=== PATIENT | male | born 1960 | race Caucasian/White ===

== ENCOUNTER → 2017-06-21 10:57 | Outpatient (CLI) | payer OTHER, SELFPAY ==
--- NOTE | 2017-06-21 11:02 | RAD_ITS ---
STUDY: X-RAY CHEST REASON FOR EXAM: Male, 56 years old. COPD. TECHNIQUE: Single frontal view of the chest. COMPARISON: CT scan 03/08/2017, chest x-ray June 15, 2016.. FINDINGS: The lungs are hyperexpanded. There are coarsened interstitial markings suggestive of mild chronic fibrosis. Stable appearance of irregular soft tissue densities in the right apex most consistent with scarring as seen on prior studies. No gross acute infiltrates. No gross effusions. Normal size heart. Normal mediastinum and herbert. Normal visualized pulmonary arteries. Normal visualized aortic arch and descending thoracic aorta. Normal visualized thoracic spine. There is degenerative osteoarthritis of the bilateral shoulders. There is no demonstrated abnormality of the visualized soft tissue structures of the upper abdomen. RAD/Chest PA and Lateral IMPRESSION: Stable COPD with probable mild fibrosis, and probable stable scarring in the right apex. Electronically Signed: Abiel Severino MD at 23:51 EST , Service support ,
== END ==
PROVIDERS: Family Provider Family Medicine; PCP Family Medicine; Visit Provider Internal Medicine Pulmonary Disease
DX: J44.9 Chronic obstructive pulmonary disease, unspecified (principal)
CPT/HCPCS: 71046

== ENCOUNTER → 2017-07-21 08:23 | Outpatient (CLI) | payer OTHER, SELFPAY ==
[2017-07-21 08:31] VITALS: BP 121/72; PULSE 100; RESP 18; TEMP 37.3; BMI 23.9
[2017-07-21] MEDS: Cosyntropin 0.25 MG Vial IM (08:39)
== END ==
PROVIDERS: Family Provider Family Medicine; PCP Family Medicine; Visit Provider Nurse Practitioner
DX: Z79.52 Long term (current) use of systemic steroids (principal)
CPT/HCPCS: 36415; 82533; 96372; J0834

== ENCOUNTER → 2017-12-20 09:38 | Outpatient (CLI) | payer OTHER, SELFPAY ==
[2017-12-20 12:02] LABS: Hematocrit 39.5 % (40-54); Hemoglobin 13.7 g/dl (13.0-16.5); Mean Corp Hgb Conc 34.7 g/gl (32-36); Mean Corpuscular Hgb 34.8 pg (27.0-32.0); Mean Corpuscular Volume 100.3 fL (80-94); Mean Platelet Vol. 8.8 fl (6.2-12.0); Platelet Count 488 K/mm3 (150-450); RBC Distribution Width SD 47.9 fl (35.1-43.9); Red Blood Count 3.94 M/mm3 (4.6-6.2); White Blood Count 10.3 K/mm3 (4.4-11.0)
[2017-12-20 12:03] LABS: Scan Indicated on CBC? Y/N NO
[2017-12-20 12:21] LABS: Vitamin B12 1650 pg/mL (211-911); Vitamin D,25 Hydroxy 34.8 ng/mL (29.95-100.01)
[2017-12-20 12:27] LABS: ALB/GLOB Ratio 0.9 RATIO (0.9-2.4); AST(SGOT) 25 U/L (15-37); Alanine Aminotransfer ALT/SGPT 23 U/L (16-61); Albumin, Serum 3.5 g/dL (3.2-5.0); Alkaline Phosphatase 76 U/L (45-117); Anion Gap 11 (5-15); BUN 5 mg/dL (7-18); BUN/Creat Ratio 7.4 RATIO (10-20); Calcium,Total 8.6 mg/dL (8.5-10.1); Chloride 94 mmol/L (98-107); Cholesterol 112 mg/dL (200); Creatinine, Serum 0.68 mg/dL (0.70-1.30); EST Glomerular Filtration Rate 128 mL/min (>60); Est Glom Filt Rate - Afr Amer 155 mL/min (>60); Glucose 101 mg/dL (74-106); High Density Lipoprotein 90 mg/dL; PSA,Total - Annual Screen 0.83 ng/mL (0.00-4.00); Potassium 4.2 mmol/L (3.5-5.1); Protein, Total 7.5 g/dL (6.4-8.2); Sodium Level 130 mmol/L (136-145); Triglycerides 20 mg/dL; Very Low Density Lipoprotein 4 mg/dL (5-40)
== END ==
PROVIDERS: Family Provider Family Medicine; PCP Family Medicine; Visit Provider Family Medicine
DX: I10 Essential (primary) hypertension (principal); K21.9 Gastro-esophageal reflux disease without esophagitis; E55.9 Vitamin D deficiency, unspecified; E53.8 Deficiency of other specified B group vitamins; Z12.5 Encounter for screening for malignant neoplasm of prostate
CPT/HCPCS: 36415; 80053; 80061; 82306; 82607; 84153; 85027; G0103

== ENCOUNTER → 2018-06-07 10:02 | Outpatient (CLI) | payer OTHER, SELFPAY ==
[2017-07-21 08:31] VITALS: BMI 23.9
--- NOTE | 2018-06-07 10:06 | RAD_ITS ---
STUDY: X-RAY - LUMBAR SPINE REASON FOR EXAM: Male, 57 years old. Back pain. TECHNIQUE: 5 view(s) of the lumbar spine were obtained. COMPARISON: None FINDINGS: Normal lumbar lordosis. There is no substantial scoliosis. There is a normal alignment of the vertebrae. Normal vertebral bodies and endplates. Moderate degenerative disc disease at L3-L4 and L4-L5. Otherwise normal disc space heights. There is no demonstrated fracture. The soft tissue structures are unremarkable. RAD/L/S Spine Min 4 Views IMPRESSION: Degenerative changes at L3-L4 and L4-L5. No acute abnormality. Electronically Signed: Abiel Severino MD at 23:10 EST , Service support ,
[2018-06-07 12:46] LABS: AST(SGOT) 21 U/L (15-37); Alanine Aminotransfer ALT/SGPT 21 U/L (16-61); Albumin, Serum 3.8 g/dL (3.2-5.0); Alkaline Phosphatase 105 U/L (45-117); Anion Gap 9 (5-15); BUN 10 mg/dL (7-18); BUN/Creat Ratio 12.6 RATIO (10-20); Chloride 98 mmol/L (98-107); Creatinine, Serum 0.79 mg/dL (0.70-1.30); EST Glomerular Filtration Rate 106 mL/min (>60); Est Glom Filt Rate - Afr Amer 128 mL/min (>60); Glucose 93 mg/dL (74-106); Potassium 4.3 mmol/L (3.5-5.1); Protein, Total 7.8 g/dL (6.4-8.2); Sodium Level 132 mmol/L (136-145)
[2018-06-07 12:54] LABS: Vitamin D,25 Hydroxy 37.1 ng/mL (29.95-100.01)
== END ==
LOC: MTLAB 10:05
PROVIDERS: Family Provider Family Medicine; PCP Family Medicine; Referring Provider Family Medicine; Visit Provider Family Medicine
DX: I10 Essential (primary) hypertension (principal); E55.9 Vitamin D deficiency, unspecified; M51.36 Other intervertebral disc degeneration, lumbar region
CPT/HCPCS: 36415; 72110; 80053; 82306

== ENCOUNTER → 2018-12-29 14:29 | Outpatient (CLI) | payer OTHER, SELFPAY ==
[2017-07-21 08:31] VITALS: BMI 23.9
[2018-12-29 15:49] LABS: Hematocrit 38.2 % (40-54); Hemoglobin 13.9 g/dL (13.0-16.5); Mean Corp Hgb Conc 36.4 g/dL (32-36); Mean Corpuscular Hgb 36.6 pg (27.0-32.0); Mean Corpuscular Volume 100.5 fL (80-94); Mean Platelet Vol. 8.9 fl (6.2-12.0); Platelet Count 465 K/mm3 (150-450); RBC Distribution Width CV 12.7 % (11.6-14.6); White Blood Count 7.8 K/mm3 (4.4-11.0)
[2018-12-29 16:16] LABS: ALB/GLOB Ratio 0.8 RATIO (0.9-2.4); AST(SGOT) 23 U/L (15-37); Alanine Aminotransfer ALT/SGPT 19 U/L (16-61); Albumin, Serum 3.4 g/dL (3.2-5.0); Alkaline Phosphatase 90 U/L (45-117); Anion Gap 7 (5-15); BUN 6 mg/dL (7-18); BUN/Creat Ratio 8.6 RATIO (10-20); Calcium,Total 8.6 mg/dL (8.5-10.1); Chloride 98 mmol/L (98-107); Cholesterol 116 mg/dL (200); EST Glomerular Filtration Rate 122 mL/min (>60); Est Glom Filt Rate - Afr Amer 148 mL/min (>60); Globulin 4.1 g/dL (2.2-4.2); Glucose 90 mg/dL (74-106); High Density Lipoprotein 88 mg/dL; PSA,Total - Annual Screen 0.67 ng/mL (0.00-4.00); Potassium 4.1 mmol/L (3.5-5.1); Protein, Total 7.5 g/dL (6.4-8.2); Sodium Level 131 mmol/L (136-145); Triglycerides 24 mg/dL; Very Low Density Lipoprotein 5 mg/dL (5-40)
[2018-12-29 16:35] LABS: Vitamin B12 1237 pg/mL (211-911); Vitamin D,25 Hydroxy 42.7 ng/mL (29.95-100.01)
== END ==
LOC: MFPLAB 14:29
PROVIDERS: Family Provider Family Medicine; PCP Family Medicine; Referring Provider Family Medicine; Visit Provider Family Medicine
DX: K21.9 Gastro-esophageal reflux disease without esophagitis (principal); I10 Essential (primary) hypertension; E53.8 Deficiency of other specified B group vitamins; E55.9 Vitamin D deficiency, unspecified; Z12.5 Encounter for screening for malignant neoplasm of prostate
CPT/HCPCS: 36415; 80053; 80061; 82306; 82607; 84153; 85027; G0103

== ENCOUNTER 2020-01-31 00:23 | Emergency (ER) | payer OTHER, SELFPAY ==
[2020-01-31 00:24] VITALS: BP 138/86; PULSE 89; RESP 16; TEMP 36.4; O2SAT 98
[2020-01-31 00:25] VITALS: BP 138/86; PULSE 97; RESP 16; TEMP 36.4; O2SAT 98; BMI 18.6
--- NOTE | 2020-01-31 00:41 | EKG12_ITS ---
Test Reason : DYSRHYTHMIA Blood Pressure : / mmHG Vent. Rate : 079 BPM Atrial Rate : 079 BPM P-R Int : 144 ms QRS Dur : 094 ms QT Int : 394 ms P-R-T Axes : 084 082 077 degrees QTc Int : 451 ms Normal sinus rhythm Normal ECG Confirmed by JESUS BERGER, ANAI ([id number]), deputy editor in chief DORIS ESTRADA ([id number]) on 01/31/2020 9:31:15 AM Referred By: OLGA LIDIA Confirmed By:ANAI LEE MD
--- NOTE | 2020-01-31 00:41 | RAD_ITS ---
STUDY: X-RAY CHEST REASON FOR EXAM: Male, 59 years old patient with weakness and weight loss over the summer from 170 to 130 pounds. Patient c/o nausea and vomiting for the last two days. Patient felt faint tonight laid down on bathroom floor. Patient has had recent ethanol intake. TECHNIQUE: Two AP portable views of the chest. COMPARISON: 06/21/2017. FINDINGS: Cardiac monitoring leads are present. There is hyperinflation of the lungs consistent with chronic obstructive lung disease (COPD). There is eventration of the hemidiaphragms. There is no demonstrated pleural abnormality. Normal size heart. Normal mediastinum and herbert. There is prominence of the pulmonary hilar arteries without peripheral pulmonary vascular congestion. Normal visualized aortic arch and descending thoracic aorta. Normal visualized thoracic spine. Normal visualized ribs, clavicles, and shoulders. There is no demonstrated abnormality of the visualized soft tissue structures of the upper abdomen. RAD/Chest 1 View (Portable) IMPRESSION: COPD without radiographic evidence of acute cardiopulmonary disease. Electronically Signed: Amanda De Souza MD at 2:28 EDT , Service support ,
--- NOTE | 2020-01-31 00:43 | ED.DCSUM_ITS ---
History of Present Illness Chief Complaint: Weakness Informant: Patient Onset: Yesterday Context: Gradual Onset Narrative: Patient presents with feeling ill for the past 2 days. He describes having a mild cough with nausea and vomiting. Tonight he had an episode where he felt dizzy and had some slight palpitations. He had a lay down on the bathroom floor. He also states he has had a 40 pound weight loss over the summer. He states he is had trouble eating and drinking secondary to his throat and he has had this worked up in the past. - Past Medical History (1) COPD (chronic obstructive pulmonary disease) Status: Chronic (2) GERD (gastroesophageal reflux disease) Status: Chronic (3) Hypertension Status: Chronic Past Medical History - Allergies and Home Meds Allergies/Adverse Reactions: Allergies No Known Allergies Allergy (Verified 07/14/17 15:46) Primary Care Physician: Jake Mcgarry MD [Primary Care Provider] - Prior records reviewed: Yes Lives: Spouse/ Significant Other Smoking Status: Current every day smoker Review of Systems General: Reports: Sweats. Denies: Fever Eyes: Denies: Visual changes - bilaterally ENT: Denies: Bilateral ear pain Cardiovascular: Reports: Palpitations Respiratory: Reports: Cough - Mild cough Gastrointestinal: Reports: Nausea, Vomiting. Denies: Abdominal pain Genitourinary: Denies: Dysuria Musculoskeletal: Reports: Myalgias Neurological: Denies: Headache Hematologic: Denies: Easy bruising, Easy bleeding Allergy: Denies: Uticaria Physical Exam Vital Signs/Narrative: Vital Signs Temp Pulse Resp BP Pulse Ox 01/31/20 00:25 97.6 F L 97 16 138/86 H 98 01/31/20 00:24 97.6 F L 89 16 138/86 H 98 Inital Vital Signs reviewed: Yes General: Well nourished, Well developed Head: Normocephalic ENT: Moist mucous membranes Neck: Supple Cardiovascular: Regular rate, Regular rhythm Respiratory: No distress, CTA bilaterally Abdomen: Soft, Nontender, Normal bowel sounds Back: Nontender Extremities: Nontender Skin: Normal color, No rash Neurological: Alert, Oriented x3 Psychological: Normal affect Diagnostic/Tx/Re-eval Impressions Chest X-Ray 01/31/20 00:41 IMPRESSION: COPD without radiographic evidence of acute cardiopulmonary disease. Electronically Signed: Amanda De Souza MD at 2:28 EDT , Service support , 01/31/20 00:41 Chest 1 View (Portable) [RAD] Stat Laboratory Results 01/31/20 01/31/20 01/31/20 00:55 00:55 00:55 WBC 14.8 H RBC 3.58 L Hgb 12.9 L Hct 36.5 L MCV 102.0 H MCH 36.0 H MCHC 35.3 RDW Std Deviation 47.5 H RDW Coeff of Nelly 12.6 Plt Count 376 MPV 8.8 Immature Gran % (Auto) 0.400 Neut % (Auto) 74.8 H Lymph % (Auto) 15.0 L [place] % (Auto) 9.2 Eos % (Auto) 0.4 Baso % (Auto) 0.2 Absolute Neuts (auto) 11.1 H Absolute Lymphs (auto) 2.23 Nucleated RBC % 0 Sodium 135 L Potassium 3.7 Chloride 105 Carbon Dioxide 22.0 Anion Gap 8 BUN 5 L Creatinine 0.59 L Estim Creat Clear Calc 106.19 Est GFR (MDRD) Af Amer 179 Est GFR (MDRD) Non-Af 148 BUN/Creatinine Ratio 8.5 L Glucose 92 Calcium 8.6 Total Bilirubin 0.40 Direct Bilirubin 0.20 AST 27 ALT 20 Alkaline Phosphatase 77 Troponin I < 0.015 Total Protein 6.9 Albumin 3.1 L Globulin 3.8 Urine Color Urine Clarity Urine pH Ur Specific [place] Urine Protein Urine Glucose (UA) Urine Ketones Urine Occult Blood Urine Nitrite Urine Bilirubin Urine Urobilinogen Ur Leukocyte Esterase Urine RBC Urine WBC Ur Squamous Epith Cells Urine Bacteria Urine Mucus Ethyl Alcohol 187.0 01/31/20 02:15 WBC RBC Hgb Hct MCV MCH MCHC RDW Std Deviation RDW Coeff of Nelly Plt Count MPV Immature Gran % (Auto) Neut % (Auto) Lymph % (Auto) [place] % (Auto) Eos % (Auto) Baso % (Auto) Absolute Neuts (auto) Absolute Lymphs (auto) Nucleated RBC % Sodium Potassium Chloride Carbon Dioxide Anion Gap BUN Creatinine Estim Creat Clear Calc Est GFR (MDRD) Af Amer Est GFR (MDRD) Non-Af BUN/Creatinine Ratio Glucose Calcium Total Bilirubin Direct Bilirubin AST ALT Alkaline Phosphatase Troponin I Total Protein Albumin Globulin Urine Color Yellow Urine Clarity Clear Urine pH 7.0 Ur Specific [place] 1.010 Urine Protein Negative Urine Glucose (UA) Normal Urine Ketones Negative Urine Occult Blood Negative Urine Nitrite Negative Urine Bilirubin Negative Urine Urobilinogen Normal Ur Leukocyte Esterase 25 H Urine RBC 0-5 SEEN Urine WBC 0 SEEN Ur Squamous Epith Cells 0 SEEN Urine Bacteria 0 SEEN Urine Mucus 0 SEEN Ethyl Alcohol - EKG Initial EKG Interpretation: Sinus Rhythm - Sinus at 79 with no acute ischemia. - Medical Decision Making Patient was given Zofran and IV fluids on arrival. Patient is a poor historian with a very convoluted story. He feels that he has been losing weight because of his throat. He states he had a fungal infection in the past and got better with nystatin and is requesting a prescription for this. He will follow-up with Dr. Banda who had done his previous scope to see if this needs to be repeated. I will also give a prescription for Zofran. Patient will be swabbed for Covid as well as respiratory viral panel prior to discharge. Patient and at bedside are comfortable with this plan. ED Disposition - Plan for ED Patient: Disposition: Home or Assisted Living Diagnosis: Vomiting, Viral syndrome Instructions: ED Viral Syndrome, ED Nausea Vomiting Adult Prescriptions: Nystatin 500,000U/5ML [Mycostatin] 4 ml PO 4X/DAY #100 ml Transmission Status: Pending to [id number] Ondansetron [Zofran Odt] 4 mg PO Q8H PRN PRN #10 tab PRN Reason: Nausea Transmission Status: Pending to [id number] Referrals: Jake Mcgarry MD [Primary Care Provider] - Nathalie Banda MD [STAFF PHYSICIAN] - As soon as possible
[2020-01-31] MEDS: 0.9% Normal Saline 1,000 ML 150 ML IV (00:54)
[2020-01-31] MEDS: Ondansetron 4 MG/2 ML Vial IV (00:57)
[2020-01-31 00:59] LABS: Absolute Lymphocyte Count 2.23 X10^3/uL (0.83-4.51); Absolute Neutrophil Count 11.1 X10^3/uL (2.0-7.7); Basophil# 0.03 X10^3/uL; Basophil% 0.2 % (0-1); Eosinophil# 0.06 X10^3/uL; Eosinophils% 0.4 % (0-5); Hematocrit 36.5 % (40-54); Hemoglobin 12.9 g/dL (13.0-16.5); Lymphocyte # 2.23 X10^3/ul (4.0); Mean Corp Hgb Conc 35.3 g/dL (32-36); Mean Platelet Vol. 8.8 fl (6.2-12.0); Monocyte# 1.37 X10^3/uL; Monocyte% 9.2 % (0-10); NRBC Flagged by Analyzer 0 % (0-5); Neutrophil # 11.08 X10^3/uL (2.7-7.7); Neutrophil % 74.8 % (47-70); Platelet Count 376 K/mm3 (150-450); RBC Distribution Width CV 12.6 % (11.6-14.6); RBC Distribution Width SD 47.5 fl (35.1-43.9); Red Blood Count 3.58 M/mm3 (4.6-6.2); White Blood Count 14.8 K/mm3 (4.4-11.0)
[2020-01-31 01:17] LABS: AST(SGOT) 27 U/L (15-37); Alanine Aminotransfer ALT/SGPT 20 U/L (16-61); Albumin, Serum 3.1 g/dL (3.2-5.0); Alkaline Phosphatase 77 U/L (45-117); Anion Gap 8 (5-15); BUN 5 mg/dL (7-18); BUN/Creat Ratio 8.5 RATIO (10-20); Calcium,Total 8.6 mg/dL (8.5-10.1); Chloride 105 mmol/L (98-107); Creatinine, Serum 0.59 mg/dL (0.70-1.30); EST Glomerular Filtration Rate 148 mL/min (>60); Est Glom Filt Rate - Afr Amer 179 mL/min (>60); Estimated Creatinine Clearance 106.19 ml/min; Globulin 3.8 g/dL (2.2-4.2); Glucose 92 mg/dL (74-106); Potassium 3.7 mmol/L (3.5-5.1); Protein, Total 6.9 g/dL (6.4-8.2); Sodium Level 135 mmol/L (136-145)
[2020-01-31 02:23] LABS: Bacteria 0 SEEN /hpf (None Seen); Color, Urine Yellow (Yellow); Glucose, Dipstick Normal (Normal); Ketone-Dipstick Negative (Negative); Leukocyte Esterase-Dipstick 25 /ul (Negative); Mucous, Urine 0 SEEN /hpf (<or=2+); Nitrite-Dipstick Negative (Negative); Occult Blood-Urine Negative /ul (Negative); Protein-Dipstick Negative (Negative); Squamous Epithelial Cells - UA 0 SEEN /hpf (0-5); Urine Bilirubin Dipstick Negative (Negative); Urine Clarity Clear (Clear); Urine Urobilinogen Normal (Normal); White Blood Cells 0 SEEN /hpf (0-5)
[2020-01-31 02:27] LABS: Red Blood Cells-Urine 0-5 SEEN /hpf (0-5)
[2020-01-31 02:51] VITALS: BP 138/92; PULSE 82; RESP 16; O2SAT 96
[2020-01-31 02:57] VITALS: BP 138/92; PULSE 82; RESP 16; O2SAT 96
== END 2020-01-31 02:59 | disposition home or self-care (01) ==
PROVIDERS: Emergency Provider Emergency Medicine; PCP Family Medicine
DX: R11.10 Vomiting, unspecified (principal); B34.9 Viral infection, unspecified; F17.200 Nicotine dependence, unspecified, uncomplicated; R63.4 Abnormal weight loss
CPT/HCPCS: 71045; 80048; 80076; 80320; 81001; 84484; 85025; 87633; 87635; 93005; 96361; 96374; 99285; J7030; A4216; G0480; J2405; U0003

== ENCOUNTER → 2020-04-22 10:26 | Outpatient (CLI) | payer OTHER, SELFPAY ==
--- NOTE | 2020-04-22 10:31 | RAD_ITS ---
STUDY: X-RAY - ABDOMEN/PELVIS REASON FOR EXAM: Male, 59 years old. DIARRHEA TECHNIQUE: AP supine and upright views of the abdomen and pelvis. COMPARISON: None. FINDINGS: Normal visualized lung bases. Multiple loops of small bowel distended with air-fluid level raising the concern of small bowel obstruction. There is no demonstrated free abdominal air. The visualized liver, spleen and kidneys are grossly normal in size and morphology. Normal soft tissue structures. Degenerative disease of the spine and bilateral hips. Scoliosis of the lumbar spine, convexity to the left. RAD/Abd Inc Decub and/or Erect IMPRESSION: Distention of small bowel loops with air-fluid level raising the concern of small bowel obstruction. If indicated, this may be further assessed with small bowel follow-through. Electronically Signed: Lani Kleni MD at 0:19 EST , Service support ,
[2020-04-22 12:24] LABS: Erythrocyte Sedimentation Rate 2 mm/hr (0-20)
[2020-04-22 12:25] LABS: Absolute Lymphocyte Count 1.79 X10^3/uL (0.83-4.51); Absolute Neutrophil Count 6.5 X10^3/uL (2.0-7.7); Basophil# 0.05 X10^3/uL; Basophil% 0.5 % (0-1); Eosinophil# 0.03 X10^3/uL; Eosinophils% 0.3 % (0-5); Hematocrit 37.2 % (40-54); Hemoglobin 13.1 g/dL (13.0-16.5); Lymphocyte # 1.79 X10^3/ul (4.0); Lymphocyte % 19.1 % (19-41); Mean Corp Hgb Conc 35.2 g/dL (32-36); Mean Corpuscular Hgb 35.5 pg (27.0-32.0); Mean Corpuscular Volume 100.8 fL (80-94); Mean Platelet Vol. 8.8 fl (6.2-12.0); Monocyte# 0.88 X10^3/uL; Monocyte% 9.4 % (0-10); NRBC Flagged by Analyzer 0 % (0-5); Neutrophil # 6.54 X10^3/uL (2.7-7.7); Neutrophil % 69.7 % (47-70); Platelet Count 448 K/mm3 (150-450); RBC Distribution Width CV 12.5 % (11.6-14.6); RBC Distribution Width SD 46.7 fl (35.1-43.9); Red Blood Count 3.69 M/mm3 (4.6-6.2); White Blood Count 9.4 K/mm3 (4.4-11.0)
[2020-04-22 12:37] LABS: ALB/GLOB Ratio 0.8 RATIO (0.9-2.4); AST(SGOT) 44 U/L (15-37); Alanine Aminotransfer ALT/SGPT 27 U/L (16-61); Albumin, Serum 3.1 g/dL (3.2-5.0); Alkaline Phosphatase 85 U/L (45-117); Anion Gap 0 (5-15); BUN 2 mg/dL (7-18); BUN/Creat Ratio 3.7 RATIO (10-20); Calcium,Total 8.5 mg/dL (8.5-10.1); Chloride 98 mmol/L (98-107); Creatinine, Serum 0.53 mg/dL (0.70-1.30); EST Glomerular Filtration Rate 166 mL/min (>60); Est Glom Filt Rate - Afr Amer 201 mL/min (>60); Globulin 3.8 g/dL (2.2-4.2); Glucose 80 mg/dL (74-106); Potassium 4.6 mmol/L (3.5-5.1); Protein, Total 6.9 g/dL (6.4-8.2); Sodium Level 128 mmol/L (136-145); Thyroid Stim Hormone (TSH) 1.42 uIU/mL (0.358-3.74)
== END ==
LOC: MTLAB 10:29
PROVIDERS: PCP Family Medicine; Referring Provider Family Medicine; Visit Provider Family Medicine
DX: R19.7 Diarrhea, unspecified (principal)
CPT/HCPCS: 36415; 74019; 80053; 84443; 85025; 85652

== ENCOUNTER 2020-04-23 08:54 | Emergency (ER) | payer OTHER, SELFPAY ==
[2020-04-23 08:55] VITALS: BP 156/90; PULSE 92; RESP 16; TEMP 36.9; O2SAT 100; BMI 19.2
--- NOTE | 2020-04-23 09:18 | CT_ITS ---
STUDY: CT ABDOMEN AND PELVIS WITH CONTRAST REASON FOR EXAM: Male, 59 years old. SBO, ABNORMAL XRAY,DIARRHEA X 12 DAYS, SPLEEN REMOVED RADIATION DOSAGE (If Supplied By Facility): CTDIvol = ( 11.14 ) mGy, DLP = ( 277.62 ) mGycm TECHNIQUE: Transaxial images were obtained from the dome of the diaphragm to the symphysis pubis without oral contrast. Oral and amp;amp; IV Gastrografin and amp;amp; 100mL Isovue-370 was administered. Sagittal and coronal images were reconstructed. Individualized dose optimization techniques were used for this CT. COMPARISON: None. FINDINGS: The visualized lung bases are unremarkable. The visualized portions of the heart are within normal limits. Normal liver. Normal gallbladder and extrahepatic biliary system. Normal spleen. Normal pancreas. Normal bilateral adrenal glands. Normal right kidney. Normal left kidney. Normal visualized stomach. Normal small intestine. There are multiple colonic diverticula consistent with diverticulosis. The appendix is visualized and appears normal. Normal abdominal aorta. Normal inferior vena cava. Normal retroperitoneum. Normal urinary bladder. Normal abdominal wall. There are diffuse degenerative changes of the visualized lumbar spine. CT/Abdomen/Pelvis WITH Contrast IMPRESSION: There are multiple colonic diverticula consistent with diverticulosis. Electronically Signed: Mario Porter, at 11:38 EST Tel , Service support ,
--- NOTE | 2020-04-23 09:29 | ED.DCSUM_ITS ---
History of Present Illness Chief Complaint: Constipation Informant: Patient Narrative: Patient is a 59-year-old male who presents to the emergency department for abnormal x-ray of the abdomen which was taken yesterday. There was concern for small bowel obstruction. He states that he has had loose stools in the morning 4-5 episodes per day over the past 12 days. States it was initially just watery. He denies any significant abdominal pain. He has been nauseous but no episodes of vomiting. He denies any fevers or chills. No chest pain or shortness of breath. 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 He denies any urinary symptoms. He did have outpatient lab work performed which they thought he was dehydrated. He denies any recent traveling. No antibiotic use. No history of C. difficile. Of note patient is a daily drinker. Drinks 4 to 5 glasses of wine per day. Denies ever going through withdrawal in the past. Past Medical History - Allergies and Home Meds Allergies/Adverse Reactions: Allergies No Known Allergies Allergy (Verified 04/23/20 08:57) Primary Care Physician: Jake Mcgarry MD [Primary Care Provider] - 1-2 Days if not improving Prior records reviewed: Yes Past Medical History: - - Hypertension, COPD Smoking Status: Current every day smoker Review of Systems All systems negative except as indicated General: Reports: Malaise. Denies: Chills, Fever, Sweats Eyes: Denies: Visual changes - bilaterally, Diplopia ENT: Denies: Rhinorrhea, Sore throat Cardiovascular: Denies: Chest pain, Palpitations Respiratory: Denies: Dyspnea, Cough, Dyspnea on exertion Gastrointestinal: Reports: Nausea, Diarrhea. Denies: Abdominal pain, Vomiting, Melena, Hematochezia Genitourinary: Denies: Dysuria, Hematuria, Frequency Musculoskeletal: Denies: Back pain, Extremity Pain Skin: Denies: Rash, Wounds Neurological: Denies: Headache, Weakness, Numbness Physical Exam Vital Signs/Narrative: Vital Signs Temp Pulse Resp BP Pulse Ox 04/23/20 08:55 98.5 F 92 16 156/90 H 100 Inital Vital Signs reviewed: Yes General: Well nourished, Well developed, No Acute Distress Head: Normocephalic, Atraumatic Eyes: Perrl, EOMI ENT: Moist mucous membranes, No rhinorrhea Neck: Supple, Nontender Cardiovascular: Regular rate, Regular rhythm, No murmurs Respiratory: No distress, CTA bilaterally, Chest nontender Abdomen: Soft, Nontender, Nondistended, - - Tympanic bowel sounds Back: Nontender, Normal Inspection Extremities: Nontender, No edema Skin: Normal color, No rash Neurological: Alert, Oriented x3, Normal Strength, Normal Sensation Psychological: Normal affect, Normal Mood Diagnostic/Tx/Re-eval - Medical Decision Making Patient presents to the ED for loose bowel movements in the day but otherwise no t having a solid bowel movement. He had an outside x-ray which showed a possible small bowel obstruction. He was referred to the ED at that time. His ago exam is benign. No abdominal tenderness. Will check basic lab work and CT scan of the abdomen/pelvis to evaluate for obstruction. Patient's lab work showed some mild dehydration with low sodium and chloride. He is given a bolus of normal saline. Otherwise no significant acute abnormality on lab work-up. His CT scan did not show any evidence of obstruction. He has diverticulosis without diverticulitis. At this point no reason to keep him in the hospital. Advised him to stay hydrated with drinking plenty of fluids. If he develops any bloody bowel movements, significant abdominal pain or develops fever/chills he needs to return to the emergency department. He otherwise is to follow-up with his PCP. He understands and is agreeable with plan. Discharged home in stable condition. All questions answered. ED Disposition - Plan for ED Patient: Disposition: Home or Assisted Living Diagnosis: Diarrhea, Dehydration Instructions: ED Dehydration (Adult), ED Diarrhea, Unknown Cause Referrals: Jake Mcgarry MD [Primary Care Provider] - 1-2 Days if not improving
[2020-04-23 09:45] LABS: Mucous, Urine 0 SEEN /hpf (<or=2+); Red Blood Cells-Urine 0 SEEN /hpf (0-5); Squamous Epithelial Cells - UA 0 SEEN /hpf (0-5)
[2020-04-23 09:51] LABS: Absolute Lymphocyte Count 1.51 X10^3/uL (0.83-4.51); Absolute Neutrophil Count 6.1 X10^3/uL (2.0-7.7); Basophil# 0.05 X10^3/uL; Basophil% 0.6 % (0-1); Eosinophil# 0.02 X10^3/uL; Eosinophils% 0.2 % (0-5); Hematocrit 40.9 % (40-54); Hemoglobin 14.3 g/dL (13.0-16.5); Lymphocyte # 1.51 X10^3/ul (4.0); Lymphocyte % 17.4 % (19-41); Mean Corpuscular Hgb 35.8 pg (27.0-32.0); Mean Corpuscular Volume 102.3 fL (80-94); Mean Platelet Vol. 8.5 fl (6.2-12.0); Monocyte# 0.89 X10^3/uL; Monocyte% 10.3 % (0-10); NRBC Flagged by Analyzer 0 % (0-5); Neutrophil # 6.13 X10^3/uL (2.7-7.7); Neutrophil % 70.6 % (47-70); Platelet Count 436 K/mm3 (150-450); RBC Distribution Width CV 12.5 % (11.6-14.6); RBC Distribution Width SD 47.7 fl (35.1-43.9); White Blood Count 8.7 K/mm3 (4.4-11.0)
[2020-04-23 09:56] LABS: Color, Urine Yellow (Yellow); Glucose, Dipstick Normal (Normal); Ketone-Dipstick Negative (Negative); Leukocyte Esterase-Dipstick 25 /ul (Negative); Nitrite-Dipstick Negative (Negative); Occult Blood-Urine Negative /ul (Negative); Protein-Dipstick Negative (Negative); Urine Bilirubin Dipstick Negative (Negative); Urine Clarity Sl. Cloudy (Clear); Urine Urobilinogen Normal (Normal)
[2020-04-23 10:05] LABS: ALB/GLOB Ratio 0.9 RATIO (0.9-2.4); AST(SGOT) 41 U/L (15-37); Alanine Aminotransfer ALT/SGPT 28 U/L (16-61); Albumin, Serum 3.4 g/dL (3.2-5.0); Alkaline Phosphatase 95 U/L (45-117); Anion Gap 5 (5-15); BUN 3 mg/dL (7-18); BUN/Creat Ratio 4.4 RATIO (10-20); Calcium,Total 8.9 mg/dL (8.5-10.1); Chloride 96 mmol/L (98-107); Creatinine, Serum 0.69 mg/dL (0.70-1.30); EST Glomerular Filtration Rate 124 mL/min (>60); Est Glom Filt Rate - Afr Amer 150 mL/min (>60); Estimated Creatinine Clearance 93.77 ml/min; Globulin 3.8 g/dL (2.2-4.2); Glucose 102 mg/dL (74-106); Potassium 4.1 mmol/L (3.5-5.1); Protein, Total 7.2 g/dL (6.4-8.2); Sodium Level 129 mmol/L (136-145)
[2020-04-23 10:07] LABS: Bacteria 1+ /hpf (None Seen); White Blood Cells 0-5 SEEN /hpf (0-5)
[2020-04-23 11:16] VITALS: BP 138/74; PULSE 64; RESP 15; O2SAT 99
[2020-04-23] MEDS: 0.9% Normal Saline 1,000 ML 999 ML IV (12:09)
== END 2020-04-23 13:53 | disposition home or self-care (01) ==
PROVIDERS: Emergency Provider Emergency Medicine; PCP Family Medicine
DX: R19.7 Diarrhea, unspecified (principal); E86.0 Dehydration; K57.30 Diverticulosis of large intestine without perforation or abscess without bleeding; I10 Essential (primary) hypertension; J44.9 Chronic obstructive pulmonary disease, unspecified; F17.200 Nicotine dependence, unspecified, uncomplicated
CPT/HCPCS: 74177; 80053; 81001; 85025; 96360; 96361; 99283; J7030; Q9967; A4216

== ENCOUNTER 2021-02-05 21:40 | Emergency (ER) | payer BC, SELFPAY ==
[2021-02-05 21:40] VITALS: BP 152/100; PULSE 94; RESP 18; TEMP 36.6; O2SAT 97
--- NOTE | 2021-02-05 22:49 | EKG12_ITS ---
Test Reason : ABD PAIN Blood Pressure : / mmHG Vent. Rate : 067 BPM Atrial Rate : 067 BPM P-R Int : 112 ms QRS Dur : 094 ms QT Int : 410 ms P-R-T Axes : 000 086 079 degrees QTc Int : 433 ms Normal sinus rhythm Normal ECG Confirmed by JESUS BERGER, ANAI ([id number]), associate editor DORIS ESTRADA ([id number]) on 02/11/2021 6:42:52 AM Referred By: NICOLE Confirmed By:ANAI LEE MD
--- NOTE | 2021-02-05 22:50 | EX.ED.DYSGE1 ---
HPI History of Present Illness Chief Complaint: Abd Pain Informant: patient and spouse/S.O. Narrative Narrative: 60-year-old male presenting with epigastric pain for 3 days. Symptoms began on Wednesday. He notes associated nausea and vomiting. He has not been able to eat or drink much. He notes that he has not been moving his bowels. He states that sometimes he can find a position of comfort but then the pain will come back. Prior to Wednesday he was not have any difficulty with eating. No fevers or diarrhea. He notes a history of hypertension. He notes a prior splenectomy when he was a child but no other abdominal surgeries [facility] Medical History (Updated 02/06/21 @ 02:[address] Lenin Salazar DO) Bone fracture COPD (chronic obstructive pulmonary disease) Environmental allergies GERD (gastroesophageal reflux disease) HTN (hypertension) Home Medications lisinopril 40 mg PO DAILY 04/23/20 [History Last Taken Unknown] famotidine [Pepcid] 20 mg PO BID #28 tab 02/06/21 [Rx Last Taken Unknown] ondansetron 4 mg PO Q6H PRN PRN #15 tab 02/06/21 [Rx Last Taken Unknown] sucralfate [Carafate] 1 g PO Q6H #28 tab 02/06/21 [Rx Last Taken Unknown] Allergy/AdvReac Type Severity Reaction Status Date / Time No Known Allergies Allergy Verified 04/23/20 08:57 Surgical History (Updated 02/05/21 @ 22:[address] Lenin Salazar DO) History of splenectomy Social History Smoking Status: Current every day smoker tobacco type: cigarettes alcohol intake: current substance use type: does not use ROS ROS ED Constitutional Constitutional ED: Denies chills or weight loss Eyes Eyes: Denies change in vision or diplopia ENT ENT ED: Denies ear pain, rhinorrhea or sore throat Cardiovascular Cardiovascular: Denies chest pain, orthopnea, palpitations or racing heartbeat Respiratory/Chest Respiratory/Chest: Denies cough, dyspnea or orthopnea Gastrointestinal Gastrointestinal: Reports abdominal pain, constipation, nausea and vomiting; Denies diarrhea Genitourinary Genitourinary ED: Denies dysuria, hematuria or urinary frequency Musculoskeletal Musculoskeletal: Denies arthralgias or myalgias Integumentary Denies abscess or rash Neurologic Neurologic: Denies headache(s) or weakness Psychiatric Psychiatric: Denies anxiety, depression, suicidal ideation or suicidal thoughts Endocrine Endocrinology: Denies polydipsia, polyphagia or polyuria Allergic/Immunologic Allergic/Immunologic ED: Denies mouth swelling, tongue swelling or urticaria EXAM Physical Exam Const Vital Signs: 02/05/21 21:40 Temperature 97.9 F Temperature Source Temporal Pulse Rate 94 Respiratory Rate 18 Blood Pressure 152/100 H Blood Pressure Mean 117 Pulse Ox 97 Oxygen Delivery Method Room Air Positive well nourished and well developed General Appearance ED: well developed HEENT Reports normocephalic, head/scalp atraumatic, TM's clear and moist mucous membranes Negative for trauma Tympanic Membrane ED: Yes TM's clear Eyes PERRL and EOMs intact bilaterally Neck no lymphadenopathy, supple and no JVD Resp normal respiratory effort and clear to auscultation bilaterally Cardio regular rate, regular rhythm and no murmurs GI non-tender Auscultation: normoactive bowel sounds Palpation: soft and tender epigastric; Negative for guarding or rebound tenderness present Back/Spine no CVA tenderness and normal ROM Extremity normal to inspection General Extremety ED: Negative for edema General Extremity: Negative for edema Neuro oriented x3 and CN's II-XII intact bilaterally Sensorium / Orientation: alert Motor Exam: strength 5/5 throughout Psych mental status grossly normal Mood & Affect: Negative for depressed or tearful Skin no rashes or lesions noted and no wounds MDM MDM MDM Narrative Medical decision making narrative: White blood cell count 10.8 with hemoglobin 15.1. CMP shows a sodium of 127 normal lipase at [address] of the abdomen pelvis does not demonstrate anything acute. This point I think the patient can be discharged home. I will write for Pepcid as well has some Zofran and Carafate. Patient to follow-up with primary care return if worsening or concerns Lab Data Attestation: I reviewed the patient's lab results. Labs: Laboratory Results - last 24 hr 02/05/21 02/05/21 23:20 23:20 WBC 10.5 RBC 4.28 L Hgb 15.1 Hct 40.9 MCV 95.6 H MCH 35.3 H MCHC 36.9 H RDW Std Deviation 41.9 RDW Coeff of Nelly 12.0 Plt Count 437 MPV 8.4 Immature Gran % (Auto) 0.700 Neut % (Auto) 73.8 H Lymph % (Auto) 14.4 L [place] % (Auto) 10.8 H Eos % (Auto) 0.1 Baso % (Auto) 0.2 Absolute Neuts (auto) 7.7 Absolute Lymphs (auto) 1.51 Nucleated RBC % 0 Sodium 127 L Potassium 3.7 Chloride 89 L Carbon Dioxide 26.0 Anion Gap 12 BUN 7 Creatinine 0.74 Estim Creat Clear Calc 90.04 Est GFR (MDRD) Af Amer 139 Est GFR (MDRD) Non-Af 115 BUN/Creatinine Ratio 9.5 L Glucose 102 Calcium 9.0 Total Bilirubin 0.70 Direct Bilirubin 0.26 AST 19 ALT 16 Alkaline Phosphatase 78 Troponin I High Sens 10 Total Protein 7.2 Albumin 3.1 L Globulin 4.1 Lipase 59 L Radiography Diagnostic Testing: Clinical Impression(s) from Imaging Studies Abdomen/Pelvis CT 02/06/21 22:49 IMPRESSION: Sigmoid diverticulosis. Electronically Signed: Mario Porter MD at 2:02 EDT Tel , Service support , EKG Initial EKG: Attestation: I personally reviewed and interpreted this EKG as follows: Comments: Sinus rhythm with a ventricular rate of 67 bpm. Prior EKG tracings: available for review Prior: Unchanged Discharge Plan Triage Chief Complaint: Abd Pain ED Provider: Lenin Salazar Dx/Rx/DC Orders Clinical Impression: Abdominal pain, acute, Vomiting, Gastritis Instructions: ED Gastritis (Adult), ED Vomiting (Adult) Prescriptions: New famotidine [Pepcid] 20 mg tablet 20 mg PO BID Qty: 28 RF: 0 sucralfate [Carafate] 1 gram tablet 1 g PO Q6H Qty: 28 RF: 0 ondansetron [ondansetron] 4 MG tablet 4 mg PO Q6H PRN PRN (Reason: Nausea) Qty: 15 RF: 0 No Action lisinopril 40 MG tablet 40 mg PO DAILY RF: 0 Primary Care Provider: Jake Mcgarry Referrals: Jake Mcgarry MD [Primary Care Provider] - 3-5 Days if not improving Disposition Disposition: Home, Self Care
[2021-02-05 23:36] LABS: Absolute Lymphocyte Count 1.51 X10^3/uL (0.83-4.51); Absolute Neutrophil Count 7.7 X10^3/uL (2.0-7.7); Basophil# 0.02 X10^3/uL; Basophil% 0.2 % (0-1); Eosinophil# 0.01 X10^3/uL; Eosinophils% 0.1 % (0-5); Hematocrit 40.9 % (40-54); Hemoglobin 15.1 g/dL (13.0-16.5); Lymphocyte # 1.51 X10^3/ul (0.83-4.51); Lymphocyte % 14.4 % (19-41); Mean Corp Hgb Conc 36.9 g/dL (32-36); Mean Corpuscular Hgb 35.3 pg (27.0-32.0); Mean Corpuscular Volume 95.6 fL (80-94); Mean Platelet Vol. 8.4 fl (6.2-12.0); Monocyte# 1.13 X10^3/uL; Monocyte% 10.8 % (0-10); NRBC Flagged by Analyzer 0 % (0-5); Neutrophil # 7.73 X10^3/uL (2.7-7.7); Neutrophil % 73.8 % (47-70); Platelet Count 437 K/mm3 (150-450); RBC Distribution Width SD 41.9 fl (35.1-43.9); Red Blood Count 4.28 M/mm3 (4.6-6.2); White Blood Count 10.5 K/mm3 (4.4-11.0)
[2021-02-05] MEDS: 0.9% Normal Saline 1,000 ML 1000 ML IV (23:38)
[2021-02-05] MEDS: Morphine 4 MG/ML Syringe IV (23:38)
[2021-02-05] MEDS: Ondansetron 4 MG/2 ML Vial IV (23:38)
[2021-02-05 23:55] LABS: AST(SGOT) 19 U/L (15-37); Alanine Aminotransfer ALT/SGPT 16 U/L (16-61); Albumin, Serum 3.1 g/dL (3.2-5.0); Alkaline Phosphatase 78 U/L (45-117); Anion Gap 12 (5-15); BUN 7 mg/dL (7-18); BUN/Creat Ratio 9.5 RATIO (10-20); Bilirubin, Direct 0.26 mg/dL (0.00-0.30); Chloride 89 mmol/L (98-107); Creatinine, Serum 0.74 mg/dL (0.70-1.30); EST Glomerular Filtration Rate 115 mL/min (>60); Est Glom Filt Rate - Afr Amer 139 mL/min (>60); Estimated Creatinine Clearance 90.04 ml/min; Globulin 4.1 g/dL (2.2-4.2); Glucose 102 mg/dL (74-106); Lipase 59 U/L (73-393); Potassium 3.7 mmol/L (3.5-5.1); Protein, Total 7.2 g/dL (6.4-8.2); Sodium Level 127 mmol/L (136-145); Troponin-I HS 10 pg/mL (3.0-78.0)
[2021-02-06] MEDS: Famotidine 20 MG Tablet 40 MG PO (03:13)
[2021-02-06] MEDS: Sucralfate 1 GM Tablet PO (03:17)
[2021-02-06 03:26] VITALS: BP 132/78; PULSE 82; RESP 18; O2SAT 96
--- NOTE | 2021-02-06 22:49 | CT_ITS ---
STUDY: CT ABDOMEN AND PELVIS WITH CONTRAST REASON FOR EXAM: Male, 60 years old. abdominal pain -- IV PO Contrast RADIATION DOSAGE (If Supplied By Facility): CTDIvol = ( 11.80 ) mGy, DLP = ( 506.54 ) mGycm TECHNIQUE: Transaxial images were obtained from the dome of the diaphragm to the symphysis pubis without oral contrast. Oral and amp; IV Gastrografin and amp; 100mL Isovue-370 was administered. Sagittal and coronal images were reconstructed. Individualized dose optimization techniques were used for this CT. COMPARISON: None. FINDINGS: The visualized lung bases are unremarkable. The visualized portions of the heart are within normal limits. Normal liver. Normal gallbladder and extrahepatic biliary system. Normal spleen. Normal pancreas. Normal bilateral adrenal glands. Normal right kidney. Normal left kidney. Normal visualized stomach. Normal small intestine. There are multiple colonic diverticula consistent with diverticulosis. The appendix is visualized and appears normal. There is diffuse atherosclerotic calcification of the abdominal aorta, without a demonstrated aneurysm. Normal inferior vena cava. Normal retroperitoneum. Normal urinary bladder. There is a left-sided inguinal hernia containing adipose tissue. There are diffuse degenerative changes of the visualized lumbar spine. There is an old compression fracture of L4 CT/Abdomen/Pelvis WITH Contrast IMPRESSION: Sigmoid diverticulosis. Electronically Signed: Mario Porter MD at 2:02 EDT Tel , Service support ,
== END 2021-02-06 03:26 | disposition home or self-care (01) ==
PROVIDERS: Emergency Provider Emergency Medicine; PCP Family Medicine
DX: K29.00 Acute gastritis without bleeding (principal); K57.30 Diverticulosis of large intestine without perforation or abscess without bleeding; K21.9 Gastro-esophageal reflux disease without esophagitis; I10 Essential (primary) hypertension; J44.9 Chronic obstructive pulmonary disease, unspecified; F17.210 Nicotine dependence, cigarettes, uncomplicated; Z79.899 Other long term (current) drug therapy
CPT/HCPCS: 74177; 80048; 80076; 83690; 84484; 85025; 93005; 96361; 96374; 96375; 99284; J7030; Q9967; J2405

== ENCOUNTER 2021-06-23 07:07 | Outpatient (CLI) | payer BC, SELFPAY ==
[2021-06-23 10:01] LABS: Absolute Lymphocyte Count 2.37 X10^3/uL (0.83-4.51); Absolute Neutrophil Count 5.7 X10^3/uL (2.0-7.7); Basophil# 0.07 X10^3/uL; Basophil% 0.7 % (0-1); Eosinophil# 0.08 X10^3/uL; Eosinophils% 0.8 % (0-5); Hematocrit 40.4 % (40-54); Hemoglobin 14.2 g/dL (13.0-16.5); Lymphocyte # 2.37 X10^3/ul (0.83-4.51); Lymphocyte % 24.8 % (19-41); Mean Corp Hgb Conc 35.1 g/dL (32-36); Mean Corpuscular Hgb 36.5 pg (27.0-32.0); Mean Corpuscular Volume 103.9 fL (80-94); Mean Platelet Vol. 8.9 fl (6.2-12.0); Monocyte# 1.24 X10^3/uL; NRBC Flagged by Analyzer 0 % (0-5); Neutrophil # 5.71 X10^3/uL (2.7-7.7); Neutrophil % 59.9 % (47-70); Platelet Count 484 K/mm3 (150-450); RBC Distribution Width CV 14.2 % (11.6-14.6); RBC Distribution Width SD 53.9 fl (35.1-43.9); Red Blood Count 3.89 M/mm3 (4.6-6.2); White Blood Count 9.6 K/mm3 (4.4-11.0)
[2021-06-23 10:23] LABS: ALB/GLOB Ratio 0.7 RATIO (0.9-2.4); AST(SGOT) 22 U/L (15-37); Alanine Aminotransfer ALT/SGPT 18 U/L (16-61); Alkaline Phosphatase 109 U/L (45-117); Anion Gap 6 (5-15); BUN 3 mg/dL (7-18); BUN/Creat Ratio 5.6 RATIO (10-20); Calcium,Total 8.3 mg/dL (8.5-10.1); Chloride 97 mmol/L (98-107); Cholesterol 109 mg/dL (200); Creatinine, Serum 0.53 mg/dL (0.70-1.30); EST Glomerular Filtration Rate 167 mL/min (>60); Est Glom Filt Rate - Afr Amer 202 mL/min (>60); Globulin 4.3 g/dL (2.2-4.2); Glucose 92 mg/dL (74-106); High Density Lipoprotein 88 mg/dL; PSA,Total - Annual Screen 0.69 ng/mL (0.00-4.00); Protein, Total 7.3 g/dL (6.4-8.2); Sodium Level 134 mmol/L (136-145); Triglycerides 51 mg/dL; Very Low Density Lipoprotein 10 mg/dL (5-40)
== END 2021-06-23 23:59 | disposition home or self-care (01) ==
LOC: MTLAB 07:09
PROVIDERS: PCP Family Medicine; Referring Provider Registered Nurse; Visit Provider Registered Nurse
DX: Z00.00 Encounter for general adult medical examination without abnormal findings (principal); Z12.5 Encounter for screening for malignant neoplasm of prostate; I10 Essential (primary) hypertension
CPT/HCPCS: 36415; 80053; 80061; 84153; 85025; G0103

== ENCOUNTER 2021-07-22 07:11 | Day surgery (SDC) | payer BC, SELFPAY ==
[2021-07-22] VITALS (7 sets, daily range): BP systolic 112–142; BP diastolic 65–74; PULSE 62–75; RESP 16–20; TEMP 36.3–36.8; O2SAT 99–100; BMI 19.2
[2021-07-22] MEDS: Lactated Ringers 1,000 ML 15 ML IV (07:36)
--- NOTE | 2021-07-22 07:41 | PCM.HP.BLA ---
History and Physical Date of Admission: 07/22/21 Intake Vital Signs 07/08/21 13:10 Height 5 ft 9 in Weight: 135 lb 6 oz BMI 20.0 BP 165/88 H Blood Pressure Location Rt brachial Position Sitting Respiration 16 Pulse 88 Pulse Source Monitor Temp 98.4 F Temp Source Temporal Pulse Oximetry (%) 98 Oxygen Delivery Method room air Intake Visit Reasons: COLONOSCOPY Chief Complaint: Consult Colonoscopy Health Promotion Coordinator Required: No Is patient in pain?: No Allergies lisinopril Adverse Reaction (Verified 07/08/21 13:13) Diarrhea Medications famotidine [Pepcid] 20 mg PO BID #28 tab 02/06/21 [Rx Confirmed 07/08/21] amlodipine 5 mg tablet 5 mg PO DAILY 07/08/21 [History Confirmed 07/08/21] ranitidine HCl 75 mg tablet 75 mg PO DAILY tab 07/08/21 [History Confirmed 07/08/21] trazodone 50 mg tablet 50 mg PO QHS PRN 07/08/21 [History Confirmed 07/08/21] PFSH Medical History (Updated 07/08/21 @ 13:[address] Norberto Mcmahon MD) Bone fracture COPD (chronic obstructive pulmonary disease) Environmental allergies GERD (gastroesophageal reflux disease) HTN (hypertension) Surgical History (Updated 07/08/21 @ 13:10 by Ruma Wednesday) History of lateral meniscus repair of left knee History of splenectomy Social History Smoking Status: Current every day smoker tobacco type: cigarettes alcohol intake: current substance use type: does not use HPI HPI HPI: GLENIS KWON, is a 60 M who presents to the office today for several issues. Patient is reporting since February he has been having mucousy stools with diarrhea and constipation intermittently. He has also had 12 pounds of weight loss. The patient also reports dysphagia. He reports that he has been having difficulty swallowing even pills. ROS General General: Yes weight change and fatigue; No appetite, colon cancer, breast cancer or weakness HEENT HEENT: Yes difficulty swallowing; No eye injury, eye surgery, swollen glands or hoarseness Endo Endocrine: No thyroid disease, diabetes mellitus, thyroid cancer, Hair loss, heat intolerance or cold intolerance Skin Skin: No rash or changing moles Musc Musculoskeletal: Yes back problems and arthritis; No rheumatoid arthritis, gout or joint pain Cardio Cardiovascular: Yes high blood pressure; No murmur, pacemaker, heart disease, atrial fibrillation, heart attack, heart stent, palpitations, shortness of breat with exertion or chest pain Psych Psychiatric: No depression, anxiety or hearing voices Resp Respiratory: No shortness of breath, No sleep apnea, No cough, No COPD, Yes asthma, No emphysema and No wheezing Gastro Gastrointestinal: Yes abdominal pain, Yes nausea or vomiting, Yes diarrhea, Yes constipation, No blood in stool, Yes acid reflux, Yes hemorrhoids, Yes ulcers, No gallbladder problem and No black,tarry stools Medhat Hematologic: No blood thinners, No blood disorders, No bleeding, Yes anemia and No blood clots Neuro Neurologic: No system reviewed and no additional complaints, except as documented, No as per HPI, No abnormal gait, No abnormal hearing, No abnormal movements, No abnormal speech, No behavioral changes, No burning sensations, No confusion, No convulsions, No disequilibrium, No dizziness, No localized weakness, No frequent falls, No headache(s), No lack of coordination, No loss of vision, No memory loss, No numbness, No other visual disturbances, No radicular pain, No restless legs, No sensory deficit, No syncope, No tingling, No tremor(s), No weakness and No other Exam Const General: cooperative Orientation: alert and oriented x3 [facility] Head: normal to inspection Neck Neck: normal visual inspection and full ROM Chest Chest palpation & inspection: normal inspection of the chest Resp Effort & Inspection: normal respiratory effort Auscultation: clear to auscultation bilaterally Cardio Rate: regular rate Rhythm: regular rhythm GI Inspection: non-distended Palpation: soft and nontender Skin General: no rashes or lesions noted Neuro General: patient alert and patient oriented x3 Extrem General: full ROM Psych Appearance: grossly normal Mental Status: mental status grossly normal Assessment and Plan Assessment and Plan (1) Dysphagia: Status: Acute Qualifiers: Dysphagia type: pharyngoesophageal phase Qualified Code(s): R13.14 - Dysphagia, pharyngoesophageal phase (2) Change in bowel movement: Status: Acute Plan - Dr. Norberto Mcmahon MD: The patient is having dysphagia and change in bowel habits as well as an unintentional weight loss. I recommend EGD and colonoscopy to investigate and possibly dilate if there is a stricture causing the dysphagia and weight loss. Patient is also describing mucousy stools which may be suggestive of obstruction or partial obstruction. Patient does not remember when his last colonoscopy was and he tells me he thinks it was over 10 years ago. I explained endoscopy in detail to the patient. I explained the risks including but not limited to stroke or heart attack with anesthesia, perforation of the GI tract, bleeding, infection. I explained that any of these could necessitate further emergency surgery. The patient understands and all questions were answered sufficiently. The patient wishes to proceed with procedure. Norberto Mcmahon MD Pager: [facility] [address] [place] [address], [address] [place] [address] Office: I have re-examined the patient. There are no clinical changes since date of exam.
--- NOTE | 2021-07-22 08:15 | EGD_PTH ---
PATIENT: GLENIS KWON Sr. LOC: EN U#:[id number] AGE/SX: 60/M ROOM: RE07/22/[address]: Dr. Norberto Mcmahon MD : 1960 BED: DIS: 07/22/2021 SPEC #: [id number] RECD: 07/22/21 09:41 STATUS: SCOTT SHELDON #: [id number] ELAINE: 07/22/21 08:[address]: Norberto Mcmahon DEPT: SURGICAL PATHOLOGY RECD BY: Osvaldo Larry ENTERED: 07/22/21 10:52 SP TYPE: EGD BIOPSY OTHR DR: Dr. Logan Mcgarry MD Tissues: A - Gastric mucous membrane B - Sigmoid colon biopsy Procedures: Surgery Specimen Level IV HEADER OPERATION: Colonoscopy, EGD ([facility]) PRE-OP DIAGNOSIS: Dysphagia, change in bowel movement TISSUE SUBMITTED: A - Gastric antrum biopsy for H. pylori and pathology, B ? Sigmoid polyp MICROSCOPIC DIAGNOSIS A. Gastric antrum, biopsy: Chronic inflammation. Focal intestinal metaplasia. No evidence of dysplasia. See comment. B. Sigmoid colon polyp, biopsy: Tubular adenoma. AM:jose 07/23/2021 COMMENT A. The results of immunohistochemistry for Helicobacter pylori will be reported separately ([id number]). Immunohistochemistry ([id number]) for P53 and Ki-67 will be performed and results will be reported separately. AB/Pas stain with matched control is positive in area with intestinal metaplasia. MICROSCOPIC DESCRIPTION Slides are reviewed. GROSS DESCRIPTION A - Received in fixative is one container labeled with the patient's name and designated gastric antrum. The specimen consists of multiple irregular fragments of light balbuena soft tissue that in aggregate measure 1 x 0.2 x 0.1 cm. The specimen is totally submitted in one cassette. B - Received in fixative is one container labeled with the patient's name and designated sigmoid polyp. The specimen consists of one irregular fragment of light balbuena soft tissue that measures 0.3 x 0.3 x 0.1 cm. The specimen is totally submitted in one cassette. / SPRING:jose 07/22/2021 TC:3 CPT: 15369 x2 ,40871
--- NOTE | 2021-07-22 08:15 | IMM_PTH ---
PATIENT: GLENIS KWON Sr. LOC: EN U#:[id number] AGE/SX: 60/M ROOM: RE07/22/[address]: Dr. Norberto Mcmahon MD : 1960 BED: DIS: 07/22/2021 SPEC #: [id number] RECD: 07/22/21 14:43 STATUS: SCOTT REJessica #: [id number] ELAINE: 07/22/21 08:[address]: Norberto Mcmahon DEPT: IMMUNOHISTOCHEMISTRY RECD BY: Laisha Mays ENTERED: 07/22/21 14:44 SP TYPE: IMMUNO OTHR DR: Dr. Logan Mcgarry MD Tissues: A - Stomach, NOS Procedures: H Pylori (initial) KI-67 (add) P53 (add) PHYSICIAN & INSTITUTION [facility] [place] [id number] SPECIMEN INFORMATION: Tissue Source: A ? Gastric antrum Clinical Info: Dysphagia, change in bowel movement Specimen Number: [id number] CPT code: 21373, 20314 x2 METHODOLOGY: Deparaffinized sections of prefer/formalin-fixed tissue or PAP/DQ stained slides are incubated with monoclonal/polyclonal antibodies/oligonucleotide probes. Localization is made via biotin free immunoperoxidase method. Appropriate controls are performed and reacted as expected. Results on target cell population are indicated in the following table: RESULTS: ANTIBODY / CLONE RESULT Block A H Pylori (polyclonal) positive P53 (DO-7) negative Ki-67 (30-9) positive, low These tests were developed and their performance characteristics determined by [facility]. They may not have been cleared or approved by the U.S. Food and Drug Administration. The FDA has determined that such clearance or approval is not necessary. The above immunohistochemical/dualISH markers are ordered and reviewed by the pathologist. INTERPRETATION: A. Gastric antrum, biopsy: Positive for Helicobacter pylori organisms. No evidence of dysplasia. AM:jose 07/23/2021
--- NOTE | 2021-07-22 08:34 | OP.EGD_ITS ---
Patient Name: Hari De Souza Procedure Date: 07/22/2021 7:52 AM Date of : 1960 Age: 60 Procedure: Upper GI endoscopy Indications: Dysphagia Providers: Norberto Mcmahon MD Referring MD: Jake Mcgaryr Medicines: Monitored Anesthesia Care Patient Profile: This is a 60 year old male. Refer to note in patient chart for documentation of history and physical. Complications: No immediate complications. Estimated blood loss: Minimal. Procedure: Pre-Anesthesia Assessment: - Prior to the procedure, a History and Physical was performed, and patient medications and allergies were reviewed. The patient's tolerance of previous anesthesia was also reviewed. The risks and benefits of the procedure and the sedation options and risks were discussed with the patient. All questions were answered, and informed consent was obtained. Prior Anticoagulants: The patient has taken no previous anticoagulant or antiplatelet agents. After reviewing the risks and benefits, the patient was deemed in satisfactory condition to undergo the procedure. After obtaining informed consent, the endoscope was passed under direct vision. Throughout the procedure, the patient's blood pressure, pulse, and oxygen saturations were monitored continuously. The Endoscope was introduced through the mouth, and advanced to the third part of duodenum. The upper GI endoscopy was accomplished without difficulty. The patient tolerated the procedure well. Scope In: 7:58:06 AM Scope Out: 8:04:05 AM Total Procedure Duration Time 0 hours 5 minutes 59 seconds Findings: Two benign-appearing, intrinsic stenoses were found 20 cm from the incisors and at the GE junction. These stenoses were severe and the narrowest stenosis measured less than one cm (in length). The stenoses were traversed after dilation. A TTS dilator was passed through the scope. Dilation with an 8-9-10 mm balloon dilator was performed to 10 mm. The dilation site was examined following endoscope reinsertion and showed complete resolution of luminal narrowing. Impression: - Benign-appearing esophageal stenoses. Dilated. - No specimens collected. Recommendation: - Discharge patient to home. - Soft diet for 3 days. - Continue present medications. - Await pathology results. - Return to my office in 1 week. - Use Prilosec (omeprazole) 20 mg PO daily. Procedure Code(s): --- Professional --- 03938, Esophagogastroduodenoscopy, flexible, transoral; with transendoscopic balloon dilation of esophagus (less than 30 mm diameter) Diagnosis Code(s): --- Professional --- K22.2, Esophageal obstruction R13.10, Dysphagia, unspecified CPT copyright 2017 [employer]. All rights reserved. The codes documented in this report are preliminary and upon neighborhood planner review may be revised to meet current compliance requirements. Norberto Mcmahon MD 07/22/2021 8:33:36 AM This report has been signed electronically. Number of Addenda: 0 Note Initiated On: 07/22/2021 7:52 AM
--- NOTE | 2021-07-22 08:35 | OP.CCLET_ITS ---
07/22/2021 Jake Mcgarry [address] [place] [address] Re : Upper GI endoscopy procedure for Hari De Souza Dear Dr. Mcgarry This procedure was performed on Thursday, July 22, 2021. My impressions and recommendations are as follows: Impressions : - Benign-appearing esophageal stenoses. Dilated. - No specimens collected. Recommendations : - Discharge patient to home. - Soft diet for 3 days. - Continue present medications. - Await pathology results. - Return to my office in 1 week. - Use Prilosec (omeprazole) 20 mg PO daily. My findings are described in the full procedure note, which is enclosed. If I can be of further assistance, please feel free to contact me at Doctor phone number(s): , Work: . Sincerely, Norberto Mcmahon MD 07/22/2021 8:33:36 AM This report has been signed electronically.
--- NOTE | 2021-07-22 08:40 | OP.COLON_ITS ---
Patient Name: Hari De Souza Procedure Date: 07/22/2021 8:06 AM Date of : 1960 Age: 60 Procedure: Colonoscopy Indications: Weight loss Providers: Norberto Mcmahon MD Referring MD: Jake Mcgarry Medicines: Monitored Anesthesia Care Patient Profile: This is a 60 year old male. Refer to note in patient chart for documentation of history and physical. Last Colonoscopy: more than 10 years ago. Complications: No immediate complications. Procedure: Pre-Anesthesia Assessment: - Prior to the procedure, a History and Physical was performed, and patient medications and allergies were reviewed. The patient's tolerance of previous anesthesia was also reviewed. The risks and benefits of the procedure and the sedation options and risks were discussed with the patient. All questions were answered, and informed consent was obtained. Prior Anticoagulants: The patient has taken no previous anticoagulant or antiplatelet agents. After reviewing the risks and benefits, the patient was deemed in satisfactory condition to undergo the procedure. After I obtained informed consent, the scope was passed under direct vision. Throughout the procedure, the patient's blood pressure, pulse, and oxygen saturations were monitored continuously. The Colonoscope was introduced through the anus and advanced to the cecum, identified by appendiceal orifice and ileocecal valve. The colonoscopy was performed without difficulty. The patient tolerated the procedure well. The quality of the bowel preparation was good. Scope In: 8:07:06 AM Scope Withdrawal Time 0 hours 8 minutes 36 seconds Scope Out: 8:24:12 AM Total Procedure Duration Time 0 hours 17 minutes 6 seconds Findings: A small polyp was found in the sigmoid colon. The polyp was removed with a hot snare. Resection and retrieval were complete. The exam was otherwise without abnormality on direct and retroflexion views. Impression: - One small polyp in the sigmoid colon, removed with a hot snare. Resected and retrieved. - The examination was otherwise normal on direct and retroflexion views. Recommendation: - Discharge patient to home. - Soft diet for 3 days. - Continue present medications. - Await pathology results. - Repeat colonoscopy in 5 years for surveillance based on pathology results. Procedure Code(s): --- Professional --- 32016, Colonoscopy, flexible; with removal of tumor(s), polyp(s), or other lesion(s) by snare technique Diagnosis Code(s): --- Professional --- D12.5, Benign neoplasm of sigmoid colon R63.4, Abnormal weight loss CPT copyright 2017 [employer]. All rights reserved. The codes documented in this report are preliminary and upon ip attorney review may be revised to meet current compliance requirements. Norberto Mcmahon MD 07/22/2021 8:39:32 AM This report has been signed electronically. Number of Addenda: 0 Note Initiated On: 07/22/2021 8:06 AM
--- NOTE | 2021-07-22 08:41 | OP.CCLET_ITS ---
07/22/2021 Jake Mcgarry [address] [place] [address] Re : Colonoscopy procedure for Hari De Souza Dear Dr. Mcgarry This procedure was performed on Thursday, July 22, 2021. My impressions and recommendations are as follows: Impressions : - One small polyp in the sigmoid colon, removed with a hot snare. Resected and retrieved. - The examination was otherwise normal on direct and retroflexion views. Recommendations : - Discharge patient to home. - Soft diet for 3 days. - Continue present medications. - Await pathology results. - Repeat colonoscopy in 5 years for surveillance based on pathology results. My findings are described in the full procedure note, which is enclosed. If I can be of further assistance, please feel free to contact me at Doctor phone number(s): , Work: . Sincerely, Norberto Mcmahon MD 07/22/2021 8:39:32 AM This report has been signed electronically.
--- NOTE | 2021-07-22 09:28 | SUR.PHASEII ---
PT RECEIVED HIS NEW PRESCRIPTION
== END 2021-07-22 23:59 | disposition home or self-care (01) ==
LOC: EN 07:12 → AC 07:14
PROVIDERS: PCP Family Medicine; Referring Provider Family Medicine; Visit Provider Surgery
PROC: 0DJD8ZZ Inspection of Lower Intestinal Tract, Via Natural or Artificial Opening Endoscopic (ICD-10-PCS; CPT 45378; principal; 2021-07-22 08:10)
DX: K22.2 Esophageal obstruction (principal); J44.9 Chronic obstructive pulmonary disease, unspecified; R13.14 Dysphagia, pharyngoesophageal phase; K31.A11 Gastric intestinal metaplasia without dysplasia, involving the antrum; D12.5 Benign neoplasm of sigmoid colon; B96.81 Helicobacter pylori [H. pylori] as the cause of diseases classified elsewhere; K21.9 Gastro-esophageal reflux disease without esophagitis; I10 Essential (primary) hypertension; F17.210 Nicotine dependence, cigarettes, uncomplicated; R63.4 Abnormal weight loss; Z68.20 Body mass index [BMI] 20.0-20.9, adult; Z79.899 Other long term (current) drug therapy; Z20.822 Contact with and (suspected) exposure to COVID-19
CPT/HCPCS: 43249; 45385; 87426; 88305; 88341; 88342; C9803; J7120; C1726

== ENCOUNTER → 2021-09-23 | Outpatient (CLI) | payer BC, SELFPAY ==
[2021-09-26 08:21] LABS: H.Pylori Breath Test Negative (Negative)
== END | disposition home or self-care (01) ==
LOC: LABSPEC 15:56
PROVIDERS: PCP Family Medicine; Visit Provider Surgery
DX: A04.8 Other specified bacterial intestinal infections (principal)
CPT/HCPCS: 83013

== ENCOUNTER 2021-10-03 15:23 | Emergency (ER) | payer BC, SELFPAY ==
[2021-10-03 15:25] VITALS: BP 151/76; PULSE 89; RESP 14; TEMP 36.6; O2SAT 98; BMI 20.7
--- NOTE | 2021-10-03 15:35 | EX.ED.UPPERE ---
HPI History of Present Illness HPI Narrative: Patient presents with pain in his left shoulder that began today. Patient states he missed a step and fell into a brick wall. Patient states his shoulder was hyperflexed. Patient states his pain is worse over the posterior aspect of his left shoulder. Patient states his pain is worse with movement. Patient denies any paresthesias or weakness. Patient denies any head injury or loss of consciousness. Patient denies any other injuries. Chief Complaint: Upper Extremity Injury Informant: patient Occured/Mechanism Mechanism/Context: Yes fall Onset/Context/Timing Onset: Today Context: Sudden Onset Timing: Continuous Location: Left shoulder Worsened by: Movement Relieved by: Nothing Associated Symptoms Associated Symptoms: Negative for Parasthesia, Weakness and Loss of Funtion PFSH PFS Medical History Alcohol use Anemia Bone fracture COPD (chronic obstructive pulmonary disease) Difficulty swallowing Environmental allergies Excessive bleeding GERD (gastroesophageal reflux disease) H. pylori infection History of edema History of stress test HTN (hypertension) Marijuana use Shortness of breath on exertion Skin tear Smoker Wears dentures Home Medications amlodipine 5 mg tablet 5 mg PO DAILY 07/08/21 [History Last Taken Unknown] ranitidine HCl 75 mg tablet 75 mg PO DAILY tab 07/08/21 [History Last Taken Unknown] trazodone 50 mg tablet 50 mg PO QHS PRN 07/08/21 [History Last Taken Unknown] smegcume-tbl-KC-lycopen-lutein [Centrum Silver Men] 1 tab PO DAILY 07/18/21 [History Last Taken Unknown] omeprazole 40 mg PO DAILY #60 cap 07/22/21 [Rx Last Taken Unknown] hydrocodone-acetaminophen 1 tab PO Q6H PRN PRN 3 Days #10 tablet 10/03/21 [Rx Last Taken Unknown] Allergy/AdvReac Type Severity Reaction Status Date / Time lisinopril AdvReac Diarrhea Verified 10/03/21 15:25 Surgical History History of bronchoscopy History of lateral meniscus repair of left knee History of splenectomy Hx of colonoscopy Social History Smoking Status: Current every day smoker tobacco type: cigarettes alcohol intake: current substance use type: does not use ROS ROS ED Constitutional Constitutional ED: Denies chills or fever(s) Eyes Eyes: Denies blurry vision or change in vision ENT ENT ED: Denies rhinorrhea or sore throat Cardiovascular Cardiovascular: Denies chest pain or palpitations Respiratory/Chest Respiratory/Chest: Denies cough or dyspnea Gastrointestinal Gastrointestinal: Denies nausea or vomiting Genitourinary Genitourinary ED: Denies dysuria or hematuria Musculoskeletal Musculoskeletal: Denies back pain or neck pain Integumentary Denies abscess or rash Neurologic Neurologic: Denies headache(s) or weakness Allergic/Immunologic Allergic/Immunologic ED: Denies mouth swelling or urticaria EXAM Physical Exam Const Vital Signs: 10/03/21 15:25 Temperature 98 F Temperature Source Temporal Pulse Rate 89 Respiratory Rate 14 Blood Pressure 151/76 H Blood Pressure Mean 101 Pulse Ox 98 Oxygen Delivery Method Room Air Positive well nourished and well developed General Appearance ED: well developed and NAD HEENT Reports moist mucous membranes normocephalic Neck full ROM and supple Extremity Extremity Narrative: There is diffuse tenderness over the left shoulder. There is no edema or ecchymosis. There is no obvious deformity noted. Range of motion was limited in all motions of the left shoulder secondary to pain. Strength is 5/5 in the radial, median, and ulnar areas. Sensation was intact to light touch in the radial, median, ulnar, and axillary areas. Radial pulses are equal bilaterally. Neuro oriented x3, CN's II-XII intact bilaterally, moves all extremities, no focal motor deficits and no sensory deficits noted Sensorium / Orientation: alert Motor Exam: strength 5/5 throughout Psych mental status grossly normal MDM MDM MDM Narrative Medical decision making narrative: X-rays of the left shoulder were obtained. There are 4 views. On my interpretation, there is a nondisplaced fracture of the proximal humerus. There is some comminution noted. There is no dislocation. There is some mild soft tissue swelling. Radiologist also interpreted the x-rays and agrees. Patient was advised of his findings. Patient was given a sling and swath. Patient was given a dose of [place] here. Patient was given a prescription for a short course of [place]. Patient was instructed to use ice to the area. Patient was instructed to follow-up with his primary care physician in 5 to 7 days. Patient was also given referral for orthopedics. Patient understood and was agreeable with the plan. All questions were answered. Discharge Plan Triage Chief Complaint: Upper Extremity Injury ED Provider: River Rivera Dx/Rx/DC Orders Clinical Impression: Closed fracture of left proximal humerus, COPD (chronic obstructive pulmonary disease) Instructions: ED Fracture, Shoulder Prescriptions: New hydrocodone-acetaminophen [hydrocodone-acetaminophen] 1 TABLET tablet 1 tab PO Q6H PRN PRN (Reason: Pain) 3 Days Qty: 10 RF: 0 No Action amlodipine 5 mg tablet 5 mg PO DAILY RF: 0 trazodone 50 mg tablet 50 mg PO QHS PRN (Reason: Sleep) RF: 0 ranitidine HCl 75 mg tablet 75 mg PO DAILY RF: 0 Centrum Silver Men 300-600-300 mcg Tablet 1 tab PO DAILY RF: 0 omeprazole 40 mg capsule,delayed release(DR/EC) 40 mg PO DAILY Qty: 60 RF: 2 Primary Care Provider: Jake Mcgarry Referrals: Jake Mcgarry MD [Primary Care Provider] - 5-7 Days Disposition Disposition: Home, Self Care
--- NOTE | 2021-10-03 15:39 | RAD_ITS ---
STUDY: XR Shoulder Min 2 Views REASON FOR EXAM: Male, 60 years old. Injury/Pain TECHNIQUE: XR Shoulder Min 2 Views LEFT COMPARISON: None. FINDINGS: Normal glenohumeral articulation. Normal acromioclavicular joint. Normal acromion. Proximal left humeral fracture. There are laterally displaced fracture fragments. The soft tissue structures are unremarkable. Normal visualized pulmonary apex. RAD/Shoulder min 2 Views IMPRESSION: Proximal left humeral fracture. There are laterally displaced fracture fragments. Electronically Signed: Teto Galeano MD at 16:05 EDT Reading Location ID and State: [facility] / [place] , Service support ,
[2021-10-03] MEDS: HYDROcodone Bitartrate/Apap 5/325 Tablet PO (15:43)
== END 2021-10-03 16:51 | disposition home or self-care (01) ==
PROVIDERS: Emergency Provider Emergency Medicine; PCP Family Medicine; Visit Provider Emergency Medicine
DX: S42.202A Unspecified fracture of upper end of left humerus, initial encounter for closed fracture (principal); J44.9 Chronic obstructive pulmonary disease, unspecified; W10.9XXA Fall (on) (from) unspecified stairs and steps, initial encounter; F17.210 Nicotine dependence, cigarettes, uncomplicated; I10 Essential (primary) hypertension; K21.9 Gastro-esophageal reflux disease without esophagitis; Z79.899 Other long term (current) drug therapy
CPT/HCPCS: 73030; 99283

== ENCOUNTER → 2021-10-16 | Outpatient (CLI) | payer BC, SELFPAY ==
--- NOTE | 2021-10-16 10:46 | RAD_ITS ---
STUDY: XR Humerus Min 2 Views REASON FOR EXAM: Male, 60 years old. FRACTURE TECHNIQUE: XR Humerus Min 2 Views LEFT COMPARISON: 10.03.21 FINDINGS: Normal glenohumeral articulation. Normal acromioclavicular joint. Normal acromion. Proximal left comminuted and displaced humeral fracture. The soft tissue structures are unremarkable. Normal visualized pulmonary apex. RAD/Humerus min 2 Views IMPRESSION: Proximal left comminuted and displaced humeral fracture. No change Electronically Signed: Teto Galeano MD at 15:29 EDT Reading Location ID and State: [facility] / [place] , Service support ,
== END | disposition home or self-care (01) ==
LOC: MTRAD 10:45
PROVIDERS: PCP Family Medicine; Referring Provider Family Medicine; Visit Provider Family Medicine
DX: S42.302A Unspecified fracture of shaft of humerus, left arm, initial encounter for closed fracture (principal); X58.XXXA Exposure to other specified factors, initial encounter
CPT/HCPCS: 73060

== ENCOUNTER 2021-11-20 11:00 | Outpatient (RCR) | payer BC, SELFPAY ==
--- NOTE | 2021-11-07 15:56 | HP.PTEVAL ---
Patient's Visit Information GLENIS KWON Sr. is a 61 year old M referred to Physical Therapy by Dr. Kyaw Lambert DO with a diagnosis of L proximal humerus Fx. Date of Evaluation: 11/07/21 Physical Therapist: Teto Owens, PT, ATC - Visit Plan Frequency: 2-3x /Week Duration: 4-6 Weeks Plan: Begin with L shoulder AAROM and transition to AROM ex's. No resistance ex's at this time Per Dr. Lambert - Subjective DOI: 10/02/21. Pt reports he missed the last step of his basement stairs and crashed into his basement wall. Pt reports he was sore immediately after wards, but then woke up the next morning and could barely move his L shoulder. Pt reports he want to the ER and received x-rays which revealed a proximal fracture of the L humerus. Pt was placed in to a sling for 6 weeks, and has just been released from this. No tingling or numbness in L UE. Pt reports he is unable to lift his L arm up at this time. No sleep difficulty secondary to pain. 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 Pt denies any PMHx. Pt is R UE dominant. - Pain L shoulder Pain Intensity (Out of 10): 0 Pain Intensity Range: 5 - Objective Neuro: B UE sensation is WNL to light touch. B bicipital reflex= 2/3. Palpation: Minor pain with general palpation. Obvious muscle atrophy at this time. MMT: R shoulder is grossly 5/5 throughout. L shoulder NT, rated at 3-/5 secondary to weakness against gravity. ROM: R shoulder flex= 140, abd= 140, ER= 65, IR WNL; L shoulder flexd= 35, abd= 50, ER= 10, IR moderately limited to T11 - Balance/Special Test Scores Quick DASH Score: 45.4525 - Goals Goal 1:: Decrease L shoulder pain x 50% to aid with IADL's Goal Time Frame: 4-6 Weeks Goal 2:: Increase L shoulder strength x2 muscle grades to aid with return to work Goal Time Frame: 4-6 Weeks Goal 3:: Increase L shoulder flex and abd ROM x 40 degrees to aid with overhead lifting Goal Time Frame: 4-6 Weeks Goal 4:: I with HEP Goal Time Frame: 4-6 Weeks - Rehabilitation Potential Physical Therapy Diagnosis: Pt has L shoulder pain, weakness, and limited ROM secondary to L proximal humerus Fx Rehabilitation Potential: Good - Anticipated Interventions Patient/Client Instruction: Educate patient on: Condition, Plan of Care For the Purpose of:: To improve self management Therapeutic Exercise to Include: Strength training, Endurance training, Flexibilty training, Passive ROM, Active ROM, Scapular Strength/Stabilization For the Purpose of:: To decrease pain, To increase ROM, To improve muscle performance and motor function Cryotherapy (ice pack, ice massage): Yes For the Purpose of:: To decrease pain Thank you for the opportunity to evaluate your patient. For Medicare and Medicare HMO plans, please review the plan of care and approve it. It will need to be FAXED BACK to us at [phone] for Medicare purposes. For Medicare only, by signing this I certify the plan of care. Please let me know if there are questions or concerns regarding this plan of care. Physician Signature: Date:
--- NOTE | 2022-04-01 15:15 | HP.PT.NRP ---
GLENIS KWON Sr. was seen in my office for initial evaluation on 11/07/21. The following Plan of Care was established for this patient: Initial Frequency: 2-3x /Week Initial Duration: 4-6 Weeks Patient/Client Instruction: Educate patient on: Condition, Plan of Care For the Purpose of:: To improve self management Therapeutic Exercise to Include: Strength training, Endurance training, Flexibilty training, Passive ROM, Active ROM, Scapular Strength/Stabilization For the Purpose of:: To decrease pain, To increase ROM, To improve muscle performance and motor function Cryotherapy (ice pack, ice massage): Yes For the Purpose of:: To decrease pain This patient was last seen in our office . Pertinent comments regarding their Physical therapy will appear below: Pt was treated for 5 PT visits for L shoulder pain through the date of 04/01/22. Pt has not returned through todays date and is discontinued at this time. At this point I will be discontinuing this patient from physical therapy. I would be happy to see this patient again in the future if found appropriate by the physician. Thank you! Teto Owens, PT, ATC Balance/Gait/Functional tests - Balance/Special Test Scores Quick DASH Score: 45.4523
== END 2021-11-20 19:00 | disposition home or self-care (01) ==
LOC: PT 11:00
PROVIDERS: PCP Family Medicine; Referring Provider Orthopaedic Surgery; Visit Provider Orthopaedic Surgery
DX: S42.202D Unspecified fracture of upper end of left humerus, subsequent encounter for fracture with routine healing (principal)
CPT/HCPCS: 97110; 97161

== ENCOUNTER → 2022-08-11 | Outpatient (CLI) | payer OTHER, SELFPAY ==
[2022-08-11 10:20] LABS: Absolute Lymphocyte Count 2.43 X10^3/uL (0.83-4.51); Absolute Neutrophil Count 5.3 X10^3/uL (2.0-7.7); Basophil# 0.07 X10^3/uL; Basophil% 0.8 % (0-1); Eosinophils% 1.1 % (0-5); Hematocrit 38.6 % (40-54); Hemoglobin 14.1 g/dL (13.0-16.5); Lymphocyte # 2.43 X10^3/ul (0.83-4.51); Lymphocyte % 26.7 % (19-41); Mean Corp Hgb Conc 36.5 g/dL (32-36); Mean Corpuscular Hgb 38.6 pg (27.0-32.0); Mean Corpuscular Volume 105.8 fL (80-94); Mean Platelet Vol. 9.1 fl (6.2-12.0); Monocyte# 1.16 X10^3/uL; Monocyte% 12.8 % (0-10); NRBC Flagged by Analyzer 0 % (0-5); Neutrophil # 5.26 X10^3/uL (2.7-7.7); Neutrophil % 57.8 % (47-70); Platelet Count 499 K/mm3 (150-450); RBC Distribution Width CV 13.8 % (11.6-14.6); RBC Distribution Width SD 54.2 fl (35.1-43.9); Red Blood Count 3.65 M/mm3 (4.6-6.2); White Blood Count 9.1 K/mm3 (4.4-11.0)
[2022-08-11 10:22] LABS: Color, Urine Amber (Yellow); Glucose, Dipstick Normal (Normal); Ketone-Dipstick 5 mg/dl (Negative); Leukocyte Esterase-Dipstick 100 /ul (Negative); Nitrite-Dipstick Negative (Negative); Occult Blood-Urine Negative /ul (Negative); Protein-Dipstick 15 mg/dl (Negative); Urine Clarity Clear (Clear); Urine Urobilinogen 4 mg/dl (Normal)
[2022-08-11 10:23] LABS: Urine Bilirubin Dipstick 1 mg/dL (Negative)
[2022-08-11 10:35] LABS: Erythrocyte Sedimentation Rate 20 mm/hr (0-20)
[2022-08-11 10:44] LABS: BNP,B-Type NATRIURETIC PEPTIDE 22.4 pg/mL (0-100)
[2022-08-11 10:50] LABS: Vitamin B12 535 pg/mL (211-911); Vitamin D,25 Hydroxy 25.8 ng/mL
[2022-08-11 11:08] LABS: ALB/GLOB Ratio 0.6 RATIO (0.9-2.4); AST(SGOT) 51 U/L (15-37); Alanine Aminotransfer ALT/SGPT 31 U/L (16-61); Albumin, Serum 2.7 g/dL (3.2-5.0); Alkaline Phosphatase 198 U/L (45-117); Anion Gap 2 (5-15); BUN 4 mg/dL (7-18); BUN/Creat Ratio 9.2 RATIO (10-20); CRP < 2.90 mg/L (0.0-3.0); Chloride 102 mmol/L (98-107); Cholesterol 131 mg/dL (200); Creatinine, Serum 0.43 mg/dL (0.70-1.30); EST Glomerular Filtration Rate 210 mL/min (>60); Est Glom Filt Rate - Afr Amer 254 mL/min (>60); Ferritin 460 ng/mL (26-388); GGTP 445 U/L (15-85); Globulin 4.3 g/dL (2.2-4.2); Glucose 102 mg/dL (74-106); High Density Lipoprotein 105 mg/dL; Iron 141 ug/dL (65-175); PSA,Total - Annual Screen 1.08 ng/mL (0.00-4.00); Potassium 3.9 mmol/L (3.5-5.1); Sodium Level 132 mmol/L (136-145); Thyroid Stim Hormone (TSH) 1.76 uIU/mL (0.358-3.74); Triglycerides 29 mg/dL; Very Low Density Lipoprotein 6 mg/dL (5-40)
[2022-08-11 14:04] LABS: Prealbumin 16.1 mg/dL (20.0-40.0)
[2022-08-12 12:09] LABS: ANTINUCLEAR ANTIBODIES DIRECT Positive (Negative)
[2022-08-13 13:07] LABS: PROEL- A/G Ratio 0.8 (0.7-1.7); PROEL- Albumin 3.1 g/dL (2.9-4.4); PROEL- Alpha-1 Globulin 0.3 g/dL (0.0-0.4); PROEL- Alpha-2 Globulin 0.7 g/dL (0.4-1.0); PROEL- Beta Globulin 0.8 g/dL (0.7-1.3); PROEL- Gamma Globulin 1.9 g/dL (0.4-1.8); PROEL- Globulin, Total 3.7 g/dL (2.2-3.9); PROEL- TOTAL PROTEIN 6.8 g/dL (6.0-8.5); PROELU- Albumin, Urine 21.1 % (.); PROELU- Alpha-1-Globulin,Ur 5.2 % (.); PROELU- Beta Globulin, Ur 31.9 % (.); PROELU- Gamma Globulin, Ur 19.8 % (.); Total Protein, Ur 28.3 mg/dL (Not Estab.)
== END | disposition home or self-care (01) ==
LOC: MTLAB 08:57
PROVIDERS: PCP Family Medicine; Referring Provider Family Medicine; Visit Provider Family Medicine
DX: I10 Essential (primary) hypertension (principal); J44.9 Chronic obstructive pulmonary disease, unspecified; D64.9 Anemia, unspecified; E87.1 Hypo-osmolality and hyponatremia; M79.10 Myalgia, unspecified site; X58.XXXA Exposure to other specified factors, initial encounter; F10.10 Alcohol abuse, uncomplicated; Y90.9 Presence of alcohol in blood, level not specified; Z12.5 Encounter for screening for malignant neoplasm of prostate
CPT/HCPCS: 36415; 80053; 80061; 81002; 82306; 82607; 82728; 82977; 83540; 83880; 84134; 84153; 84165; 84166; 84403; 84443; 85025; 85652; 86038; 86140; G0103

== ENCOUNTER → 2022-08-12 | Outpatient (CLI) | payer OTHER, SELFPAY ==
[2022-08-12 10:44] LABS: Follicle Stimulating Hormone 28.9 mIU/mL; Luteinizing Hormone 13.9 mIU/mL
[2022-08-14 19:07] LABS: Vitamin B1, Thiamine 138.1 nmol/L (66.5-200.0)
== END | disposition home or self-care (01) ==
LOC: MTLAB 08:03
PROVIDERS: PCP Family Medicine; Referring Provider Family Medicine; Visit Provider Family Medicine
DX: R71.8 Other abnormality of red blood cells (principal); R79.89 Other specified abnormal findings of blood chemistry
CPT/HCPCS: 36415; 82746; 83001; 83002; 84425

== ENCOUNTER → 2022-08-19 | Outpatient (CLI) | payer OTHER, SELFPAY ==
--- NOTE | 2022-08-19 08:06 | US_ITS ---
STUDY: ABDOMINAL ULTRASOUND - RIGHT UPPER QUADRANT REASON FOR VISIT: Male, 61 years old elevated lft TECHNIQUE: Ultrasound evaluation of the right upper quadrant was performed with real-time and static ch-scale imaging. TECHNICAL QUALITY: Adequate. COMPARISON: Comparison is made with prior study dated February 06, 2021. FINDINGS: Liver: The liver measures 16.3 cm. There is increased echogenicity consistent with fatty infiltration. The bile ducts are within normal limits. There is hepatic color flow. The direction of portal flow is hepatopetal. There is no demonstrated mass lesion. Gallbladder: Normal distended gallbladder. The gallbladder wall measures 1.7 mm. There is a negative sonographic Bosch''s sign. There is no pericholecystic fluid. There are no gallstones. Common Bile Duct (C.B.D.): The common bile duct measures 6.7 mm. Pancreas: Normal size of the head, body and tail of the pancreas. There is normal echogenicity of the pancreas. There is no demonstrated pancreatic mass or cyst. Right Kidney: Normal size of the right kidney. The right kidney measures 10.3 cm x 5.1 cm x 4.7 cm. Normal renal cortex. The right cortex measures 1.6 cm. There is no demonstrated renal mass or cyst. There is no right hydronephrosis. US/Abdomen Limited IMPRESSION: Fatty infiltration of the liver. Electronically Signed: Dhruv Bradley MD at 15:15 EDT ,
== END | disposition home or self-care (01) ==
LOC: US 08:05
PROVIDERS: PCP Family Medicine; Referring Provider Family Medicine; Visit Provider Family Medicine
DX: R79.89 Other specified abnormal findings of blood chemistry (principal)
CPT/HCPCS: 76705

== ENCOUNTER → 2022-09-01 | Outpatient (CLI) | payer OTHER, SELFPAY ==
--- NOTE | 2022-09-01 14:03 | CT_ITS ---
STUDY: LOW DOSE CT LUNG CANCER SCREENING REASON FOR EXAM: Male, 61 years old. Lung cancer screening -- and gt;20 pk yr hx;current smoker RADIATION DOSAGE (If Supplied By Facility): CTDIvol = ( 2.01 ) mGy, DLP = ( 72.23 ) mGycm TECHNIQUE: No contrast was administered. Low dose technique was utilized (average mAS-38 and kVp 120). 1.25 mm axial source images with a slice interval of 1.25-mm were reconstructed in lung windows. 2.5 mm axial source images with a slice interval of 2.5-mm were reconstructed in lung windows. 5.0 mm axial source images with a slice interval of 5.0-mm were reconstructed in soft tissue windows. COMPARISON: Comparison is made with prior study dated March 08, 2017. NODULES: Calcified granulomas in both upper lobes. Emphysema: Hyperinflation. Diffuse emphysematous changes with bullous formation worse in the upper lobes. Stable fibrocalcific scarring in the right lung apex and right upper lobe. Endobronchial lesion: None Aorta: Calcified atherosclerotic plaques. CORONARY ARTERIES: Coronary artery calcification coronary artery calcification. Heart: Unremarkable. Pulmonary artery: Unremarkable. Mediastinal nodes: Small mediastinal lymph nodes. Other chest and abdominal findings: CT/Low Dose CT Lung Screening IMPRESSION: Lung-RADS category 2 - Continue annual screening with LDCT in 12 months. IMPORTANT NOTES FOR USE: ACR Lung-RADS Version 1.1 Assessment Categories Release Date: 2018 Category: Coded 0-4 bases on nodule(s) with highest degree of suspicion. Negative screen is defined as categories 1 and 2; a positive screen is defined as categories 3 and 4. Category 3 and 4A nodules that are unchanged on interval CT should be coded as category 2, and individuals returned to screening in 12 months. Category 4X: Category 3 or 4 nodules with additional imaging findings that increase the suspicion of lung cancer, such as spiculation, GGN that doubles in size in 1 year, enlarged lymph notes, etc. Category Modifiers: S (significant finding unrelated to lung cancer) Electronically Signed: Dhruv Bradley MD at 14:36 EDT ,
== END | disposition home or self-care (01) ==
LOC: CT 14:03
PROVIDERS: PCP Family Medicine; Referring Provider Nurse Practitioner Family; Visit Provider Nurse Practitioner Family
DX: Z12.2 Encounter for screening for malignant neoplasm of respiratory organs (principal); R91.8 Other nonspecific abnormal finding of lung field; Z87.891 Personal history of nicotine dependence
CPT/HCPCS: 71271

== ENCOUNTER → 2022-09-14 | Outpatient (CLI) | payer OTHER, SELFPAY ==
--- NOTE | 2022-09-14 12:05 | RAD_ITS ---
A INDICATION: LEFT RIB PAIN EXAMINATION/TECHNIQUE: X-RAY - XR Ribs Unilateral W/ PA Chest Min 3 Views: AP chest with 4 mm left rib series COMPARISON: Chest radiograph 06/21/2017. FINDINGS: SOFT TISSUES: No soft tissue swelling or gas. Mild aortic atherosclerosis. BONES: No visible rib fracture or cortical step-off.. Cortical irregularity and sclerosis seen at the left humeral head neck junction. VISUALIZED LUNGS: Lungs symmetrically hyperexpanded with interstitial coarsening. Mild bilateral apical scarring. No focal consolidation effusion or pneumothorax. RAD/Ribs Uni Min 3V w/PA Chest IMPRESSION: No evidence of rib fracture. Left humeral head neck junction mild sclerosis and cortical irregularity at the margin of the study, possibly representing healing fracture. Recommend dedicated shoulder radiograph. Electronically Signed: Jesse Dumont MD at 9:51 EDT ,
[2022-09-14 15:42] LABS: Absolute Lymphocyte Count 2.84 X10^3/uL (0.83-4.51); Absolute Neutrophil Count 5.2 X10^3/uL (2.0-7.7); Basophil# 0.06 X10^3/uL; Basophil% 0.6 % (0-1); Eosinophil# 0.13 X10^3/uL; Eosinophils% 1.4 % (0-5); Hemoglobin 11.6 g/dL (13.0-16.5); Lymphocyte # 2.84 X10^3/ul (0.83-4.51); Lymphocyte % 30.3 % (19-41); Mean Corp Hgb Conc 35.2 g/dL (32-36); Mean Corpuscular Hgb 37.1 pg (27.0-32.0); Mean Corpuscular Volume 105.4 fL (80-94); Mean Platelet Vol. 9.2 fl (6.2-12.0); Monocyte# 1.03 X10^3/uL; NRBC Flagged by Analyzer 0 % (0-5); Neutrophil # 5.24 X10^3/uL (2.7-7.7); Neutrophil % 56.1 % (47-70); Platelet Count 716 K/mm3 (150-450); RBC Distribution Width CV 12.6 % (11.6-14.6); Red Blood Count 3.13 M/mm3 (4.6-6.2); White Blood Count 9.4 K/mm3 (4.4-11.0)
[2022-09-14 16:16] LABS: ALB/GLOB Ratio 0.5 RATIO (0.9-2.4); AST(SGOT) 24 U/L (15-37); Alanine Aminotransfer ALT/SGPT 20 U/L (16-61); Albumin, Serum 2.6 g/dL (3.2-5.0); Alkaline Phosphatase 94 U/L (45-117); Anion Gap 7 (5-15); BUN 5 mg/dL (7-18); BUN/Creat Ratio 8.7 RATIO (10-20); Calcium,Total 8.9 mg/dL (8.5-10.1); Chloride 104 mmol/L (98-107); Creatinine, Serum 0.58 mg/dL (0.70-1.30); EST Glomerular Filtration Rate 151 mL/min (>60); Est Glom Filt Rate - Afr Amer 183 mL/min (>60); Ferritin 450 ng/mL (26-388); Glucose 87 mg/dL (74-106); Iron 67 ug/dL (65-175); Iron Binding Capacity,Total 282 ug/dL (250-450); PERCENT IRON SATURATION 23.8 % (15.0-55.0); Potassium 3.8 mmol/L (3.5-5.1); Protein, Total 7.6 g/dL (6.4-8.2); Sodium Level 135 mmol/L (136-145)
[2022-09-16 06:09] LABS: HEPATITIS B SURFACE AG Negative (Negative); Hep C Antibodies Non Reactive (Non Reactive); Hepatitis A IgM Antibody Negative (Negative); Hepatitis B Core AB IgM Negative (Negative)
== END | disposition home or self-care (01) ==
PROVIDERS: PCP Family Medicine; Referring Provider Family Medicine; Visit Provider Family Medicine
DX: R71.8 Other abnormality of red blood cells (principal); D64.9 Anemia, unspecified; R74.8 Abnormal levels of other serum enzymes
CPT/HCPCS: 36415; 71101; 80053; 80074; 82728; 83540; 83550; 85025

== ENCOUNTER → 2023-03-03 | Outpatient (CLI) | payer OTHER, SELFPAY ==
[2023-03-03 10:33] LABS: Absolute Lymphocyte Count 4.02 X10^3/uL (0.83-4.51); Absolute Neutrophil Count 3.8 X10^3/uL (2.0-7.7); Basophil# 0.06 X10^3/uL; Basophil% 0.7 % (0-1); Eosinophil# 0.13 X10^3/uL; Eosinophils% 1.4 % (0-5); Hematocrit 36.9 % (40-54); Hemoglobin 12.6 g/dL (13.0-16.5); Lymphocyte # 4.02 X10^3/ul (0.83-4.51); Lymphocyte % 43.9 % (19-41); Mean Corp Hgb Conc 34.1 g/dL (32-36); Mean Corpuscular Hgb 32.6 pg (27.0-32.0); Mean Corpuscular Volume 95.6 fL (80-94); Mean Platelet Vol. 9.8 fl (6.2-12.0); Monocyte# 1.07 X10^3/uL; Monocyte% 11.7 % (0-10); NRBC Flagged by Analyzer 0 % (0-5); Neutrophil # 3.84 X10^3/uL (2.7-7.7); Platelet Count 438 K/mm3 (150-450); RBC Distribution Width CV 15.8 % (11.6-14.6); RBC Distribution Width SD 55.4 fl (35.1-43.9); Red Blood Count 3.86 M/mm3 (4.6-6.2); White Blood Count 9.2 K/mm3 (4.4-11.0)
[2023-03-03 10:48] LABS: Vitamin B12 279 pg/mL (211-911)
[2023-03-03 10:51] LABS: ALB/GLOB Ratio 0.8 RATIO (0.9-2.4); AST(SGOT) 18 U/L (15-37); Alanine Aminotransfer ALT/SGPT 20 U/L (16-61); Albumin, Serum 3.4 g/dL (3.2-5.0); Alkaline Phosphatase 76 U/L (45-117); Anion Gap 5 (5-15); BUN 9 mg/dL (7-18); BUN/Creat Ratio 11.7 RATIO (10-20); Calcium,Total 9.2 mg/dL (8.5-10.1); Chloride 100 mmol/L (98-107); Creatinine, Serum 0.77 mg/dL (0.70-1.30); EST Glomerular Filtration Rate 108 mL/min (>60); Est Glom Filt Rate - Afr Amer 131 mL/min (>60); Globulin 4.5 g/dL (2.2-4.2); Glucose 94 mg/dL (74-106); LDH 194 U/L (87-241); Protein, Total 7.9 g/dL (6.4-8.2); Sodium Level 132 mmol/L (136-145)
[2023-03-03 11:09] LABS: Ferritin 97 ng/mL (26-388); GGTP 25 U/L (15-85); Iron 58 ug/dL (65-175)
[2023-03-04 15:08] LABS: Albumin 3.6 g/dL (2.9-4.4); Alpha-1-Globulins 0.3 g/dL (0.0-0.4); Alpha-2-Globulins 0.7 g/dL (0.4-1.0); Gamma Globulin 1.8 g/dL (0.4-1.8); Immunoglobulin A 207 mg/dL (61-437); Immunoglobulin G 871 mg/dL (603-1613); Immunoglobulin M 1427 mg/dL (20-172); PROEL- TOTAL PROTEIN 7.3 g/dL (6.0-8.5)
== END | disposition home or self-care (01) ==
LOC: MTLAB 07:29
PROVIDERS: PCP Family Medicine; Referring Provider Internal Medicine Hematology & Oncology; Visit Provider Internal Medicine Hematology & Oncology
DX: D47.2 Monoclonal gammopathy (principal); R74.8 Abnormal levels of other serum enzymes
CPT/HCPCS: 36415; 80053; 82607; 82728; 82784; 82977; 83540; 83615; 84165; 85025; 86334

== ENCOUNTER → 2023-11-05 | Outpatient (CLI) | payer MEDICARE, SELFPAY ==
--- NOTE | 2023-11-05 07:57 | AAAS_ITS ---
Reason For Study: SCREENING Aorta Measurements Aorta Doppler Measurements Proximal aorta measures1.90x2.06cm. in cross- Peak systolic flow velocities within the proximal sectional axis. aorta measure 106.7 cm/sec. Proximal aorta measures2.11cm. in longitudinal Peak systolic flow velocities within the mid aorta axis. measure 69.7 cm/sec. Mid aorta measures1.70x1.71cm. in cross-sectional Peak systolic flow velocities within the distal axis. aorta measure 90.4 cm/sec. Mid aorta measures1.69cm. in longitudinal axis. Distal aorta measures1.46x1.70cm. in cross- sectional axis. Distal aorta measures1.47cm. in longitudinal axis. Left Iliac Artery Left iliac artery measures 1.04 cm. in the longitudinal axis. Left iliac artery measures 1.06x0.94 cm. in the cross-sectional axis. Peak systolic velocity in the left iliac artery measures 124.1 cm/sec. Right Iliac Artery Right iliac artery measures 1.01x1.00 cm. in the cross-sectional axis. Right iliac artery measures 1.03 cm. in the longitudinal axis. Peak systolic velocity in the right iliac artery measures 126.7 cm/sec. Procedure Aorta IVC Iliac vasculature or bypass grafts [id number]. Exam performed in department. VL/AAA Screening Interpretation Summary Aorta patent, normal caliber. Bilateral iliac arteries patent, normal caliber. Ordering Physician: Logan Mcgarry Referring Physician: Logan Mcgarry Performed By: Yajaira Webb RVT, RDCS and Student
--- NOTE | 2023-11-05 07:57 | CT_ITS ---
STUDY: LOW DOSE CT LUNG CANCER SCREENING REASON FOR EXAM: Male, 63 years old. Current smoker. Patient smokes one half pack per day for 52 years. COPD. RADIATION DOSAGE (If Supplied By Facility): CTDIvol = ( 3.02 ) mGy, DLP = ( 123.42 ) mGycm TECHNIQUE: No contrast was administered. Low dose technique was utilized (average mAS-38 and kVp 120). 1.25 mm axial source images with a slice interval of 1.25-mm were reconstructed in lung windows. 2.5 mm axial source images with a slice interval of 2.5-mm were reconstructed in lung windows. 5.0 mm axial source images with a slice interval of 5.0-mm were reconstructed in soft tissue windows. COMPARISON: Comparison is made with prior study September 01, 2022. NODULES: Stable calcified granulomas once again seen in the lungs more prominent in the right upper lobe. Emphysema: Hyperinflation. Diffuse emphysematous changes with bullous formation worse in the upper lobes. Stable fibrocalcific scarring in the right lung apex and right upper lobe. Endobronchial lesion: Unremarkable Aorta: Atherosclerotic plaque formation. CORONARY ARTERIES: Coronary artery calcification is seen. Heart: Unremarkable Pulmonary artery: Unremarkable Mediastinal nodes: Small mediastinal lymph nodes. Other chest and abdominal findings: CT/Low Dose CT Lung Screening IMPRESSION: Lung-RADS category 2 - Continue annual screening with LDCT in 12 months. IMPORTANT NOTES FOR USE: ACR Lung-RADS Version 1.1 Assessment Categories Release Date: 2018 Category: Coded 0-4 bases on nodule(s) with highest degree of suspicion. Negative screen is defined as categories 1 and 2; a positive screen is defined as categories 3 and 4. Category 3 and 4A nodules that are unchanged on interval CT should be coded as category 2, and individuals returned to screening in 12 months. Category 4X: Category 3 or 4 nodules with additional imaging findings that increase the suspicion of lung cancer, such as spiculation, GGN that doubles in size in 1 year, enlarged lymph notes, etc. Category Modifiers: S (significant finding unrelated to lung cancer) Electronically Signed: Dhruv Bradley MD at 10:12 EDT ,
== END | disposition home or self-care (01) ==
PROVIDERS: PCP Family Medicine; Referring Provider Family Medicine; Visit Provider Family Medicine
DX: Z13.6 Encounter for screening for cardiovascular disorders (principal); Z12.2 Encounter for screening for malignant neoplasm of respiratory organs; F17.210 Nicotine dependence, cigarettes, uncomplicated
CPT/HCPCS: 71271; 76706

== ENCOUNTER → 2023-11-11 | Outpatient (CLI) | payer MEDICARE, SELFPAY ==
--- NOTE | 2023-11-11 09:38 | BD_ITS ---
STUDY: DUAL ENERGY X-RAY ABSORPTIOMETRY / DXA REASON FOR EXAM: Male, 63 years old. [id number] TECHNIQUE: Bone Mineral Density (BMD) measurements of lumbar spine and left hip were obtained. COMPARISON: None. FINDINGS: Lumbar Spine (L1-L4): g/cm2 (0.763) / T-score (-2.6) / Z-score (-1.9) Findings are suggestive of osteoporosis with a high fracture risk. Left Femur Total: g/cm2 (0.872) / T-score (-1.1) / Z-score (-0.6) Left Femoral Neck: g/cm2 (0.678) / T-score (-1.9) / Z-score (-0.8) BD/Dexa Bone Density Study IMPRESSION: The patient is considered osteoporotic as outlined below according to World [employer] Organization (WHO) criteria with a high fracture risk. Reference Information: The T-score is the number of standard deviations above or below the standard which is normal for young adults at their peak bone mineral density. The World Health Organization (WHO) interprets the T-scores as follows: Above -1 Normal bone density Between -1 and -2.5 Osteopenia Equal to / or below -2.5 Osteoporosis As a practical clinical guideline, osteopenia may be graded as follows: Mild -1 through -1.5 Moderate -1.6 through -2.0 Severe -2.1 through -2.4 The Z-score is the number of standard deviations above or below age-matched controls. A Z-score of less than -1.5 would be considered abnormal. References: 1. NIH Osteoporosis and Related Bone Diseases www osteo.org 2. International Society for Clinical Densitometry www iscd.org 3. National Osteoporosis Foundation www nof.org Electronically Signed: Dhruv Bradley MD at 7:57 EDT ,
== END | disposition home or self-care (01) ==
LOC: OPBD 09:17
PROVIDERS: PCP Family Medicine; Referring Provider Family Medicine; Visit Provider Family Medicine
DX: F17.210 Nicotine dependence, cigarettes, uncomplicated (principal); Z13.820 Encounter for screening for osteoporosis
CPT/HCPCS: 77080

== ENCOUNTER → 2023-11-22 | Outpatient (CLI) | payer MEDICARE, SELFPAY ==
[2023-11-22 16:51] LABS: Ionized Calcium Order ORDER TUBE
[2023-11-22 17:52] LABS: Anion Gap 4 (5-15); BUN 16 mg/dL (7-18); BUN/Creat Ratio 15.8 RATIO (10-20); Calcium,Total 9.2 mg/dL (8.5-10.1); Chloride 102 mmol/L (98-107); Creatinine, Serum 1.01 mg/dL (0.70-1.30); EST Glomerular Filtration Rate 79 mL/min (>60); Est Glom Filt Rate - Afr Amer 95 mL/min (>60); Glucose 95 mg/dL (74-106); Magnesium 1.8 mg/dL (1.6-2.6); Phosphorus 3.4 mg/dL (2.5-4.9); Potassium 3.9 mmol/L (3.5-5.1); Sodium Level 133 mmol/L (136-145)
[2023-11-22 17:57] LABS: PTHIN 33.4 pg/mL (18.4-80.1)
[2023-11-22 17:58] LABS: Vitamin D,25 Hydroxy 36.8 ng/mL
[2023-11-22 18:04] LABS: Ionized Calcium 5.13 mg/dL (4.36-5.20)
== END | disposition home or self-care (01) ==
LOC: MFPLAB 15:50
PROVIDERS: PCP Family Medicine; Visit Provider Family Medicine
DX: M81.0 Age-related osteoporosis without current pathological fracture (principal)
CPT/HCPCS: 36415; 80048; 82306; 82330; 83735; 83970; 84100

== ENCOUNTER 2023-12-07 12:47 | Outpatient (CLI) | payer MEDICARE, SELFPAY ==
[2023-12-07 12:57] VITALS: BP 124/69; PULSE 66; RESP 16; TEMP 36.6; O2SAT 95; BMI 20.5
[2023-12-07] MEDS: 0.9% NaCl Peripheral Flush Adult/Peds IV (13:07)
[2023-12-07] MEDS: Zoledronic Acid 5 MG 100 ML 300 MG IV (13:07)
[2023-12-07] MEDS: 0.9% Normal Saline (100mL Bag) 100 ML 15 ML IV (13:07)
[2023-12-07 13:47] VITALS: BP 113/61; PULSE 64; RESP 16; TEMP 36.5; O2SAT 97
== END 2023-12-07 23:59 | disposition home or self-care (01) ==
LOC: MEDOUTP 12:48
PROVIDERS: PCP Family Medicine; Referring Provider Family Medicine; Visit Provider Family Medicine
DX: M81.0 Age-related osteoporosis without current pathological fracture (principal)
CPT/HCPCS: 96365; A4216; J3489

== ENCOUNTER → 2024-09-19 | Outpatient (CLI) | payer MEDICARE, SELFPAY ==
--- NOTE | 2024-09-19 13:49 | CT_ITS ---
PROCEDURE: LOW DOSE CT LUNG SCREENING 09/19/2024 REASON FOR EXAM: >20 PK YR HX;CURRENT SMOKER; ASYMPTOMATIC COPD. TECHNIQUE: Low Dose CT Lung screening without contrast. Coronal and Sagittal reconstruction series were provided. One or more dose reduction techniques were used (e.g., Automated exposure control, adjustment of the mA and/or kV according to patient size, use of iterative reconstruction technique). REFERENCE LINK: [employer] Lung-RADS RADIATION DOSE SUMMARY: CTDlvol: 1.48 mGy DLP: 54.97 mGycm COMPARISON: None FINDINGS: PULMONARY NODULES: (Only nodules >3mm are reported) Nodules described below are on series 1 unless otherwise specified. Pulmonary Nodules: Scattered calcified granulomas. Hardware:None Lymph Nodes:No significant mediastinal lymph node seen. Heart and Vasculature:Coronary artery calcifications are noted. Coronary Artery Calcifications: Present Lungs and Airways: Emphysematous changes. Bullous formation in the upper lobes. Multiple calcified granulomas more prominent in the upper lobes. Pleura:No pleural effusion. Upper Abdomen:Unremarkable Bones:Degenerative changes of the thoracic spine. CT/Low Dose CT Lung Screening IMPRESSION: Scattered calcified granulomas with the COPD and bullous changes more pronounce d in the upper lobes. Coronary artery calcification (CAC) is is present Lung-RADS Category: 2 BENIGN (BASED ON IMAGING FEATURES OR INDOLENT BEHAVIOR). RECOMMEND 12-MONTH SCREENING LDCT. Other Significant Findings: None. Reading Location: [place] [id number]
== END | disposition home or self-care (01) ==
PROVIDERS: PCP Family Medicine; Referring Provider Nurse Practitioner Family; Visit Provider Nurse Practitioner Family
DX: Z12.2 Encounter for screening for malignant neoplasm of respiratory organs (principal); Z87.891 Personal history of nicotine dependence
CPT/HCPCS: 71271

== ENCOUNTER → 2025-01-24 | Outpatient (CLI) | payer MEDICARE, SELFPAY ==
[2025-01-24 10:08] LABS: Hematocrit 38.2 % (40-54); Hemoglobin 13.5 g/dL (13.0-16.5); Immature Granulocytes Count 0.060 X10^3/uL (0.0-0.0); Immature Reticulocyte Fraction 6.60 % (3.00-15.90); Mean Corp Hgb Conc 35.3 g/dL (32-36); Mean Corpuscular Volume 97.0 fL (80-94); Mean Platelet Vol. 9.4 fl (6.2-12.0); NRBC Flagged by Analyzer 0 % (0-5); Platelet Count 409 K/mm3 (150-450); RBC Distribution Width CV 13.9 % (11.6-14.6); RBC Distribution Width SD 50.2 fl (35.1-43.9); Red Blood Count 3.94 M/mm3 (4.6-6.2); Reticulocyte Count 1.38 % (0.5-1.5); White Blood Count 9.4 K/mm3 (4.4-11.0)
[2025-01-24 10:28] LABS: PTHIN 30 pg/mL (11-61)
[2025-01-24 10:43] LABS: Anion Gap 12 (5-15); BUN 10 mg/dL (4-19); BUN/Creat Ratio 15.6 RATIO (10-20); Calcium,Total 9.4 mg/dL (7.6-11.0); Carbon Dioxide 23.6 mmol/L (21.0-32.0); Chloride 99 mmol/L (98-108); Ferritin 127 ng/mL (37-417); Glucose 94 mg/dL (70-99); Iron 128 ug/dL (65-175); Potassium 4.2 mmol/L (3.3-5.1); Vitamin B12 323 pg/mL (180-914); Vitamin D,25 Hydroxy 25.0 ng/mL (30-100)
== END | disposition home or self-care (01) ==
LOC: MFPLAB 09:11
PROVIDERS: PCP Family Medicine; Visit Provider Family Medicine
DX: I10 Essential (primary) hypertension (principal); D64.9 Anemia, unspecified; M81.0 Age-related osteoporosis without current pathological fracture
CPT/HCPCS: 36415; 80048; 82306; 82607; 82728; 83540; 83970; 84443; 85025; 85045

== ENCOUNTER 2025-02-07 14:26 | Outpatient (CLI) | payer MEDICARE, SELFPAY ==
[2025-02-07] MEDS: 0.9% Normal Saline (100mL Bag) 100 ML 15 ML IV (14:42)
[2025-02-07 14:44] VITALS: BP 151/65; PULSE 63; RESP 16; TEMP 36.4; O2SAT 96; BMI 19.9
[2025-02-07] MEDS: 0.9% NaCl Peripheral Flush Adult/Peds IV (14:44)
[2025-02-07 15:17] VITALS: BP 140/76; PULSE 62
== END 2025-02-07 23:59 | disposition home or self-care (01) ==
LOC: MEDOUTP 14:27
PROVIDERS: PCP Family Medicine; Referring Provider Family Medicine; Visit Provider Family Medicine
DX: M81.0 Age-related osteoporosis without current pathological fracture (principal)
CPT/HCPCS: 96365; A4216; J3489